=== PATIENT | female | born 1950 | race Caucasian/White ===

== ENCOUNTER 2019-11-24 13:39 | Emergency (ER) | payer OTHER, SELFPAY ==
[2019-11-24 14:09] VITALS: BP 118/85; PULSE 66; RESP 20; TEMP 37.3; O2SAT 97
--- NOTE | 2019-11-24 15:10 | ED.URI ---
HPI - URI/Sore Throat General Chief Complaint: Upper Respiratory Infection Stated Complaint: cough/body aches Time Seen by Provider: 11/24/19 15:10 Source: patient Mode of arrival: ambulatory Limitations: no limitations History of Present Illness HPI Narrative: A 69 y/o female, who is a smoker/occasional drinker hospital worker, presents to with c/o of a cough since (3 days ago). She reports a low grade fever and a sore throat from coughing, but denies an earache, CP , calf pain/ edema, SOB, N/V/D/ . Pt states that she got her influenza immunization this season. Pt is not on any wheezing medications. Onset (ago): day(s) (3) Related Data Home Medications Medication Instructions Recorded Confirmed aspirin [Aspirin Low Dose] 81 mg PO DAILY 11/24/19 11/24/19 sertraline 25 mg PO DAILY 11/24/19 11/24/19 Allergies Allergy/AdvReac Type Severity Reaction Status Date / Time No Known Allergies Allergy Verified 11/24/19 14:07 Review of Systems Review of Systems: Narrative: General/Constitutional: Reports: low grade fever; Denies: weight loss Eyes: Denies: Redness,discharge Ears/Nose/Throat: Reports: sore throat; Denies: Epistaxis,ear discharge, earache Respiratory: Reports: a cough; Denies: Hemoptysis Cardiovascular: Denies: edema Gastrointestinal: Denies: Vomiting, Bleeding-rectal Skin: Denies: Lumps, eruption Neurologic: Denies: Focal Weakness,Sz Hematologic: Denies: Petechiae/Purpura Psychiatric: Denies: Suicidal ideation All systems reviewed & are unremarkable except as noted in HPI and below PMFSH Past Medical History Medical History Anxiety Bronchitis Cerebral aneurysm Hepatitis C HTN (hypertension) Mass on back Seasonal allergies Wears dentures upper partial Wears glasses Surgical History Surgical History H/O brain surgery S/P cerebral aneurysm coil H/O breast biopsy left, benign H/O colonoscopy H/O repair of right rotator cuff H/O: hysterectomy History of tonsillectomy Family History Family History Mother Hypertension Cerebrovascular accident Family history of lupus erythematosus Sibling Hypertension Father Family history of diabetes mellitus in first degree relative Patient's father is Diabetes mellitus Social History Social History (Updated 11/24/19 @ 15:27 by Sally Calabrese) Smoking status: Smoker, status unknown Second hand tobacco smoke exposure: Yes Alcohol intake: current Comments PCP: Dr. Cloud At time of signature, agree with nursing past medical, surgical, social and family history. There is no relevant family history pertinent to the presenting complaint Exam Narrative: Exam Narrative: General Appearance: Well appearing, Well nourished, No distress EYE: PERRLA, EOMI, Conjunctiva clear Ears: External ear normal, Auditory canal normal, TM normal Nose: Normal nose, Rhinorrhea, Mucousal erythema Mouth/Throat: Normal appearing, Normal lips, MM moist, Uvula midline, Pharyngeal erythema Respiratory: Airway patent, No respiratory distress, Breath sounds equal, slight wheeze Cardiovascular: RRR, No JVD Skin: Warm, Dry, Normal color Neurological: A&O x3, Speech clear, CN II-X intact Psychiatric: Normal mood, Normal affect Course Vital Signs Vital signs: Vital Signs Temperature 99.1 F 11/24/19 14:09 Pulse Rate 66 11/24/19 14:09 Respiratory Rate 20 11/24/19 14:09 Blood Pressure 118/85 11/24/19 14:09 Pulse Oximetry 97 11/24/19 14:09 Temperature 99.1 F 11/24/19 14:09 Pulse Rate 66 11/24/19 14:09 Respiratory Rate 20 11/24/19 14:09 Blood Pressure 118/85 11/24/19 14:09 Pulse Oximetry 97 11/24/19 14:09 MDM - URI/Sore Throat Lab Data Labs: Influenza A Screen Positive Reference Range: Negative Influenza B Sc
== END 2019-11-24 15:26 | disposition home or self-care (01) ==
PROVIDERS: Emergency Provider Emergency Medicine; PCP Internal Medicine
DX: J11.1 Influenza due to unidentified influenza virus with other respiratory manifestations (principal); F17.210 Nicotine dependence, cigarettes, uncomplicated
CPT/HCPCS: 87804; 99213; G0463

== ENCOUNTER 2019-12-20 11:04 | Outpatient (CLI) | payer OTHER, SELFPAY ==
[2019-12-20 11:33] LABS: Hematocrit 45.1 % (37.0-47.0); Hemoglobin 14.7 g/dL (12.0-15.0); Mean Corpuscular HGB Conc 32.6 g/dl (32-36); Mean Corpuscular Hemoglobin 30.1 pg (26-34); Mean Corpuscular Volume 92.2 fl (80-100); Mean Platelet Volume 10.3 fl (7.4-10.4); Platelet Count Result 259 k/mm3 (150-375); Red Blood Count 4.89 M/mm3 (4.2-5.4); Red Cell Distribution Width 13.9 % (11.5-14.5); White Blood Count 6.4 K/mm3 (4.5-10.0)
[2019-12-20 11:48] LABS: Potassium 4.7 mmol/L (3.4-5.0)
[2019-12-20 12:00] LABS: LDL Cholesterol Direct 80 mg/dL
[2019-12-20 12:08] LABS: Alanine Aminotransferase 24 U/L (4-35); Albumin Level 4.4 g/dL (3.5-5.1); Alkaline Phosphatase 91 U/L (38-126); Aspartate Amino Transferase 32 U/L (14-36); Bilirubin,Total 0.5 mg/dL (0.2-1.3); Blood Urea Nitrogen 15 mg/dL (7-17); Calcium 9.3 mg/dL (8.4-10.2); Carbon Dioxide 28 mmol/L (22-30); Chloride 107 mmol/L (98-107); Cholesterol 168 mg/dL (0-200); Estimated Glomerular Filt Rate 55; Glucose 95 mg/dL (65-105); HDL Direct 60 mg/dL; Sodium 143 mmol/L (137-145); Triglycerides 94 mg/dL (<150)
[2019-12-20 12:44] LABS: Hepatitis C Virus Antibody Reactive (Negative)
[2019-12-20 12:52] LABS: Folic Acid > 20.0 ng/mL (2.76->20); Vitamin B12 > 1000.0 pg/mL (239-931)
== END 2019-12-20 11:05 | disposition home or self-care (01) ==
LOC: ANHLAB 11:07
PROVIDERS: PCP Internal Medicine; Visit Provider Internal Medicine
DX: Z00.00 Encounter for general adult medical examination without abnormal findings (principal); B18.2 Chronic viral hepatitis C; R53.83 Other fatigue
CPT/HCPCS: 36415; 80053; 80061; 82607; 82746; 84443; 85027; 86803; 87522

== ENCOUNTER 2020-06-12 10:35 | Outpatient (CLI) | payer OTHER, SELFPAY ==
--- NOTE | ~2020-06-12 | MM_ITS ---
EXAMINATION: MM screening [facility] BI w hilario HISTORY: Screening mammogram TECHNIQUE: Craniocaudal and mediolateral oblique 3-D tomosynthesis images were obtained and synthetic 2-D images were generated. CAD analysis was submitted and interpreted. COMPARISON: 02/12/2019, 11/08/2016, 03/07/2014, 02/27/2014 BREAST PARENCHYMAL COMPOSITION: There are scattered areas of fibroglandular density. FINDINGS: There is no evidence of suspicious mass, calcification, or architectural distortion to sugg est malignancy in either breast. There has been no suspicious interval change. IMPRESSION: 1. No mammographic evidence of malignancy. 2. Recommend routine screening mammography in one year. BI-RADS Category 1: Negative Reviewed, dictated and finalized at location A.
== END 2020-06-12 10:36 | disposition home or self-care (01) ==
LOC: ANHIMG 10:37
PROVIDERS: PCP Internal Medicine; Visit Provider Internal Medicine
DX: Z12.31 Encounter for screening mammogram for malignant neoplasm of breast (principal)
CPT/HCPCS: 77063; 77067

== ENCOUNTER 2020-10-02 08:29 | Outpatient (CLI) | payer OTHER, SELFPAY ==
[2020-10-02 08:43] LABS: Basophils Absolute Auto 0.1 K/mm3 (0.0-0.1); Basophils Percent Auto 1.1 % (0.2-1.2); Eosinophils Absolute Auto 0.2 K/mm3 (0-0.3); Eosinophils Percent Auto 2.7 % (0-4.4); Hematocrit 42.3 % (37.0-47.0); Hemoglobin 13.9 g/dL (12.0-15.0); Immature Granulocyte Absolute 0.02 K/mm3 (0.00-0.031); Immature Granulocyte Percent A 0.4 % (0-0.5); Lymphocytes Absolute Auto 1.46 K/mm3 (0.9-3.2); Lymphocytes Percent Auto 26.6 % (18.3-44.2); Mean Corpuscular HGB Conc 32.9 g/dl (32-36); Mean Corpuscular Volume 94.2 fl (80-100); Mean Platelet Volume 10.3 fl (7.4-10.4); Monocytes Absolute Auto 0.4 K/mm3 (0.1-0.6); Monocytes Percent Auto 7.5 % (2.6-8.5); Neutrophils Absolute Auto 3.4 K/mm3 (1.3-6.7); Neutrophils Percent Auto 61.7 % (45.5-73.1); Platelet Count Result 243 k/mm3 (150-375); Red Blood Count 4.49 M/mm3 (4.2-5.4); Red Cell Distribution Width 13.4 % (11.5-14.5); White Blood Count 5.5 K/mm3 (4.5-10.0)
[2020-10-02 08:58] LABS: Alanine Aminotransferase 22 U/L (4-35); Albumin Level 4.1 g/dL (3.5-5.1); Alkaline Phosphatase 69 U/L (38-126); Anion Gap 0 mmol/L (8-16); Aspartate Amino Transferase 30 U/L (14-36); Bilirubin,Total 0.5 mg/dL (0.2-1.3); Blood Urea Nitrogen 23 mg/dL (7-17); Calcium 9.4 mg/dL (8.4-10.2); Carbon Dioxide 37 mmol/L (22-30); Chloride 107 mmol/L (98-107); Cholesterol 161 mg/dL (0-200); Estimated Glomerular Filt Rate 55; Glucose 96 mg/dL (65-105); HDL Direct 57 mg/dL; Magnesium 2.1 mg/dL (1.6-2.3); Potassium 4.4 mmol/L (3.4-5.0); Sodium 144 mmol/L (137-145); Triglycerides 77 mg/dL (<150)
[2020-10-02 09:09] LABS: LDL Cholesterol Direct 78 mg/dL
[2020-10-02 10:13] LABS: Folic Acid > 20.0 ng/mL (2.76->20)
== END 2020-10-02 08:30 | disposition home or self-care (01) ==
PROVIDERS: PCP Internal Medicine; Visit Provider Internal Medicine
DX: Z00.00 Encounter for general adult medical examination without abnormal findings (principal); R53.83 Other fatigue; I10 Essential (primary) hypertension
CPT/HCPCS: 36415; 80053; 80061; 82607; 82746; 83735; 84443; 85025

== ENCOUNTER 2021-06-16 14:51 | Outpatient (CLI) | payer MEDICARE, SELFPAY ==
--- NOTE | ~2021-06-16 | MM_ITS ---
EXAMINATION: MM screening [facility] BI w hilario HISTORY: Screening TECHNIQUE: Craniocaudal and mediolateral oblique 3-D tomosynthesis images were obtained and synthetic 2-D images were generated. CAD analysis was submitted and interpreted. COMPARISON: Comparison to multiple prior studies sequentially, with oldest reviewed study dated 02/27. BREAST PARENCHYMAL COMPOSITION: There are scattered areas of fibroglandular density. FINDINGS: There is no evidence of suspicious mass, calcification, or architectural distortion to sugg est malignancy in either breast. There has been no suspicious interval change. IMPRESSION: 1. No mammographic evidence of malignancy. 2. Recommend routine screening mammography in one year. BI-RADS Category 1: Negative Reviewed, dictated and finalized at location A.
== END 2021-06-16 14:52 | disposition home or self-care (01) ==
LOC: ANHIMG 14:54
PROVIDERS: PCP Internal Medicine; Visit Provider Internal Medicine
DX: Z12.31 Encounter for screening mammogram for malignant neoplasm of breast (principal)
CPT/HCPCS: 77063; 77067

== ENCOUNTER 2021-11-15 11:19 | Outpatient (CLI) | payer MEDICARE, SELFPAY ==
[2021-11-15 11:46] LABS: Basophils Absolute Auto 0.1 K/mm3 (0.0-0.1); Basophils Percent Auto 1.7 % (0.2-1.2); Eosinophils Absolute Auto 0.1 K/mm3 (0-0.3); Hematocrit 43.5 % (37.0-47.0); Hemoglobin 14.5 g/dL (12.0-15.0); Immature Granulocyte Absolute 0.01 K/mm3 (0.00-0.031); Immature Granulocyte Percent A 0.2 % (0-0.5); Lymphocytes Percent Auto 28.8 % (18.3-44.2); Mean Corpuscular HGB Conc 33.3 g/dl (32-36); Mean Corpuscular Hemoglobin 30.9 pg (26-34); Mean Corpuscular Volume 92.6 fl (80-100); Mean Platelet Volume 10.3 fl (7.4-10.4); Monocytes Absolute Auto 0.4 K/mm3 (0.1-0.6); Monocytes Percent Auto 6.7 % (2.6-8.5); Neutrophils Percent Auto 60.6 % (45.5-73.1); Platelet Count Result 243 k/mm3 (150-375); Red Cell Distribution Width 13.4 % (11.5-14.5); White Blood Count 6.6 K/mm3 (4.5-10.0)
[2021-11-15 11:58] LABS: Alanine Aminotransferase 25 U/L (4-35); Albumin Level 4.5 g/dL (3.5-5.1); Alkaline Phosphatase 99 U/L (38-126); Anion Gap 4 mmol/L (8-16); Aspartate Amino Transferase 30 U/L (14-36); Bilirubin,Total 0.4 mg/dL (0.2-1.3); Blood Urea Nitrogen 13 mg/dL (7-17); Calcium 9.5 mg/dL (8.4-10.2); Carbon Dioxide 29 mmol/L (22-30); Chloride 109 mmol/L (98-107); Cholesterol 183 mg/dL (0-200); Estimated Glomerular Filt Rate 55; Glucose 103 mg/dL (65-110); HDL Direct 71 mg/dL; Potassium 4.2 mmol/L (3.4-5.0); Sodium 142 mmol/L (137-145); Triglycerides 102 mg/dL (<150)
[2021-11-15 12:09] LABS: LDL Cholesterol Direct 79 mg/dL
[2021-11-15 13:06] LABS: Folic Acid > 20.0 ng/mL (2.76->20)
== END 2021-11-15 11:20 | disposition home or self-care (01) ==
PROVIDERS: PCP Internal Medicine; Visit Provider Internal Medicine
DX: R53.83 Other fatigue (principal); I10 Essential (primary) hypertension; R74.8 Abnormal levels of other serum enzymes
CPT/HCPCS: 36415; 80053; 80061; 82607; 82746; 84443; 85025

== ENCOUNTER 2022-04-05 14:14 | Outpatient (CLI) | payer MEDICARE, SELFPAY ==
--- NOTE | ~2022-04-05 | XR_ITS ---
EXAM: XR ankle LT 2V, XR tibia fibula LT 2V DATE: 04/05/2022 14:53 HISTORY: M79.606 - Pain in leg, unspecified . COMPARISON: None available. FINDINGS: Decreased mineralization. No fracture or dislocation. No lytic or blastic lesion. Plantar and Achilles enthesopathy. Mild degenerative tibiotalar change. No erosion or periosteal change. Soft tissues within normal limits. Small left ankle joint effusion. IMPRESSION: No acute osseous finding in the left tibia/fibula or left ankle. Reviewed, dictated and finalized at location K. IMPRESSION: No acute osseous finding in the left tibia/fibula or left ankle.
--- NOTE | ~2022-04-05 | XR_ITS ---
EXAMINATION: XR knee LT 3V DATE: 04/05/2022 14:53 INDICATION: Left knee pain TECHNIQUE: Three views of the left knee were obtained. COMPARISON: None. FINDINGS: Alignment is normal. No fracture or osteochondral lesion. There is mild tricompartmental os teoarthritis characterized by tiny marginal osteophytes. No joint effusion/synovitis. Soft tissues a re unremarkable. IMPRESSION: 1. No acute osseous abnormality. Reviewed, dictated and finalized at location A.
== END 2022-04-05 14:15 | disposition home or self-care (01) ==
PROVIDERS: PCP Internal Medicine; Visit Provider Internal Medicine
DX: M79.606 Pain in leg, unspecified (principal)
CPT/HCPCS: 73562; 73590; 73600

== ENCOUNTER 2022-06-15 07:15 | Outpatient (RCR) | payer MEDICARE, SELFPAY ==
[2022-04-20 13:00] VITALS: BMI 28.3
== END 2022-07-04 08:28 | disposition home or self-care (01) ==
LOC: ANHWOC 07:15
PROVIDERS: PCP Internal Medicine; Visit Provider Internal Medicine
DX: S80.812D Abrasion, left lower leg, subsequent encounter (principal)
CPT/HCPCS: 87070; 87077; 87186; 87205; 99211; 99212; 99213; A9270; G0463

== ENCOUNTER → 2022-09-07 08:28 | Outpatient (CLI) | payer MEDICARE, SELFPAY ==
--- NOTE | ~2022-09-07 | MM_ITS ---
EXAMINATION: MM screening [facility] BI w hilario HISTORY: Screening mammogram TECHNIQUE: Craniocaudal and mediolateral oblique 3-D tomosynthesis images were obtained and synthetic 2-D images were generated. CAD analysis was submitted and interpreted. COMPARISON: 06/16/2021, 06/12/2020, 02/12/2019 bilateral screening mammogram examinations BREAST PARENCHYMAL COMPOSITION: There are scattered areas of fibroglandular density. FINDINGS: There is no evidence of suspicious mass, calcification, or architectural distortion to sugg est malignancy in either breast. There has been no suspicious interval change. IMPRESSION: 1. No mammographic evidence of malignancy. 2. Recommend routine screening mammography in one year. BI-RADS Category 1: Negative Reviewed, dictated and finalized at location A. RIDER
== END ==
PROVIDERS: PCP Internal Medicine; Visit Provider Internal Medicine
DX: Z12.31 Encounter for screening mammogram for malignant neoplasm of breast (principal)
CPT/HCPCS: 77063; 77067

== ENCOUNTER 2022-09-13 14:40 | Outpatient (CLI) | payer MEDICARE, SELFPAY ==
--- NOTE | ~2022-09-13 | DEXA_ITS ---
Bone Density Report Name: FRAN VAZQUEZ Age: 71 Sex: Female Ethnicity: White Date of : 1950 Indication: postmenopausal; screening for osteoporosis; hysterectomy; Referring Provider: TYRONE GARCIA Study: Bone densitometry was performed. Exam Date: September 13, 2022 Accession number: [id number] Bone Density: Region BMD T-score Z-score Classification AP Spine(L1-L4) 0.744 -2.8 -0.6 Osteoporosis Femoral Neck (Left) 0.569 -2.5 -0.7 Osteoporosis Total Hip (Left) 0.649 -2.4 -0.9 Osteopenia Femoral Neck (Right) 0.561 -2.6 -0.8 Osteoporosis Total Hip (Right) 0.636 -2.5 -1.0 Osteoporosis Total Hip Mean 0.643 -2.5 -1.0 Osteopenia World Health Organization criteria for BMD impression classify patients as: Normal (T-score at or above -1.0), Osteopenia (T-score between -1.0 and -2.5), or Osteoporosis (T-score at or below -2.5). 10-year Fracture Risk: FRAX not reported because: Some T-score for Spine Total or Hip Total or Femoral Neck at or below -2.5 Clinical Information Provided by Patient: Has used the following medications: Vitamin D, Calcium Has the following medical conditions: Hysterectomy Patient maximum height was 64 Menopause Age: 47 No regular weight bearing exercise Drinks caffeinated beverages Onset of menses at age 14 Number of children 2 Impression: The patient has osteoporosis, based on the Total Spine T-score. Discussion: INCREASED RISK OF FRACTURE. BONE DENSITY IS UNDESIRABLY LOW AT ONE OR MORE SKELETAL SITES, CONSISTENT WITH POSTMENOPAUSAL OSTEOPOROSIS. This patient's lowest T-score meets the World Health Organization's (WHO) criteria for osteoporosis at one or more sites (T-score -2.5 or below). In untreated patients, the risk of osteoporotic fracture increases approximately two-fold for each 1.0 SD decrease in T-score. Low bone density is not the only risk factor for fracture; also consider factors such as patient's age, frailty or poor health, risk of falling, risk of injury, previous osteoporotic fracture, family history of osteoporosis, cigarette smoking, low body weight, etc. Not everyone with low bone mineral density has osteoporosis; osteomalacia and other metabolic bone disorders should also be considered. Patients who have osteoporosis should be evaluated for specific diseases and conditions (secondary causes) that may cause or contribute to bone loss. The [place] [employer] Clinical Endocrinologists (AACE) and National Osteoporosis Foundation (NOF) recommend pharmacologic intervention for all postmenopausal women whose T-score is in this range. The patient should follow a healthful lifestyle (good nutrition with adequate calcium and vitamin D, and appropriate weight-bearing exercise). Follow-Up: Consider a repeat BMD and Vertebral Fracture Assessment (VFA) e
== END 2022-09-13 14:41 | disposition home or self-care (01) ==
PROVIDERS: PCP Internal Medicine; Visit Provider Internal Medicine
DX: Z78.0 Asymptomatic menopausal state (principal); M85.89 Other specified disorders of bone density and structure, multiple sites; M81.0 Age-related osteoporosis without current pathological fracture
CPT/HCPCS: 77080

== ENCOUNTER 2022-09-19 08:49 | Outpatient (CLI) | payer MEDICARE, SELFPAY ==
[2022-09-19 09:10] LABS: Basophils Absolute Auto 0.1 K/mm3 (0.0-0.1); Basophils Percent Auto 1.4 % (0.2-1.2); Eosinophils Absolute Auto 0.2 K/mm3 (0-0.3); Eosinophils Percent Auto 4.3 % (0-4.4); Hematocrit 41.2 % (37.0-47.0); Hemoglobin 13.5 g/dL (12.0-15.0); Immature Granulocyte Absolute 0.02 K/mm3 (0.00-0.031); Immature Granulocyte Percent A 0.4 % (0-0.5); Lymphocytes Absolute Auto 1.26 K/mm3 (0.9-3.2); Lymphocytes Percent Auto 24.9 % (18.3-44.2); Mean Corpuscular HGB Conc 32.8 g/dl (32-36); Mean Corpuscular Hemoglobin 30.4 pg (26-34); Mean Corpuscular Volume 92.8 fl (80-100); Mean Platelet Volume 9.9 fl (7.4-10.4); Monocytes Absolute Auto 0.4 K/mm3 (0.1-0.6); Monocytes Percent Auto 8.1 % (2.6-8.5); Neutrophils Absolute Auto 3.1 K/mm3 (1.3-6.7); Neutrophils Percent Auto 60.9 % (45.5-73.1); Platelet Count Result 220 k/mm3 (150-375); Red Blood Count 4.44 M/mm3 (4.2-5.4); Red Cell Distribution Width 13.2 % (11.5-14.5); White Blood Count 5.1 K/mm3 (4.5-10.0)
[2022-09-19 09:51] LABS: Alanine Aminotransferase 25 U/L (6-35); Albumin Level 4.1 g/dL (3.5-5.1); Alkaline Phosphatase 91 U/L (38-126); Anion Gap 5 mmol/L (8-16); Aspartate Amino Transferase 30 U/L (14-36); Bilirubin,Total 0.5 mg/dL (0.2-1.3); Blood Urea Nitrogen 14 mg/dL (7-17); Calcium 8.8 mg/dL (8.4-10.2); Carbon Dioxide 30 mmol/L (22-30); Chloride 109 mmol/L (98-107); Cholesterol 184 mg/dL (0-200); Estimated Glomerular Filt Rate 49; Glucose 97 mg/dL (65-110); HDL Direct 69 mg/dL; Potassium 4.8 mmol/L (3.4-5.0); Sodium 144 mmol/L (137-145); Triglycerides 94 mg/dL (<150)
[2022-09-19 10:10] LABS: LDL Cholesterol Direct 72 mg/dL
[2022-09-19 10:55] LABS: Folic Acid > 20.0 ng/mL (2.76->20)
== END 2022-09-19 08:50 | disposition home or self-care (01) ==
LOC: ANHLAB 08:54
PROVIDERS: PCP Internal Medicine; Visit Provider Internal Medicine
DX: R53.83 Other fatigue (principal); I10 Essential (primary) hypertension; R74.8 Abnormal levels of other serum enzymes
CPT/HCPCS: 36415; 80053; 80061; 82607; 82746; 84443; 85025

== ENCOUNTER 2022-12-12 08:23 | Outpatient (CLI) | payer MEDICARE, SELFPAY ==
--- NOTE | 2022-12-12 08:34 | EST_ITS ---
Patient Info Name: Nata Fuentes Age: 72 years : 1950 Gender: Female Ht: 63 in Wt: 170 lbs BSA: 1.88 m2 HR: 63 bpm BP: 126 / 77 mmHg Heart Rhythm: Sinus Rhythm Technical Quality: Fair Exam Date: 12/12/2022 8:47 AM Exam Location: [facility] Patient Status: Outpatient Admit Date: 12/12/2022 Staff Ordering Physician: Lawson Cloud DO [employer]: Cinthia Gunter RDCS Attending Provider: Referring Physician: Ai CABRAL; Exam Type: CA stress echo Study Info Indications R00.2 - Palpitations Treadmill exercise stress echocardiogram is performed. Summary 1. 1. Negative Emile exercise stress test for ischemic ST changes by ECG criteria. 2. 2. Mildly reduced functional capacity, achieving 7 METs of workload. 3. 3. Hypertensive response to exercise. 4. 4. Appropriate HR response to exercise. 5. 5. Appropriate HR recovery at 1 minute post exercise. 6. 6. Negative stress echocardiogram for ischemia by wall motion analysis. 7. 7. Patient informed of the above results. Stress Echo Findings Left Ventricle Appropriate increase in LV endocardial thickening with systole. Appropriate augmentation of contractility with systole. No wall motion abnormality. Left Ventricle Normal LV systolic function, no wall motion abnormality. Protocol: Emile Stress ECG Details Stage: REST Duration (min): 0 min : 58 sec Speed (mph): 0.0 Grade (%): 0 HR (bpm): 66 SBP (mmHg): 126 DBP (mmHg): 77 METS: --- Stage: REST Duration (min): 9 min : 37 sec Speed (mph): 0.0 Grade (%): 0 HR (bpm): 67 SBP (mmHg): 126 DBP (mmHg): 77 METS: --- Stage: STAGE 1 Duration (min): 1 min : 0 sec Speed (mph): 1.7 Grade (%): 10 HR (bpm): 95 SBP (mmHg): 126 DBP (mmHg): 77 METS: --- Stage: STAGE 1 Duration (min): 2 min : 0 sec Speed (mph): 1.7 Grade (%): 10 HR (bpm): 121 SBP (mmHg): 126 DBP (mmHg): 77 METS: --- Stage: STAGE 1 Duration (min): 3 min : 0 sec Speed (mph): 1.7 Grade (%): 10 HR (bpm): 126 SBP (mmHg): 126 DBP (mmHg): 77 METS: --- Stage: STAGE 2 Duration (min): 1 min : 0 sec Speed (mph): 2.5 Grade (%): 12 HR (bpm): 139 SBP (mmHg): 126 DBP (mmHg): 77 METS: --- Stage: STAGE 2 Duration (min): 1 min : 54 sec Speed (mph): 0.0 Grade (%): 0 HR (bpm): 143 SBP (mmHg): 196 DBP (mmHg): 120 METS: --- Stage: RECOVERY Duration (min): 0 min : 5 sec Speed (mph): 0.0 Grade (%): 0 HR (bpm): 142 SBP (mmHg): 196 DBP (mmHg): 120 METS: --- Stage: RECOVERY Duration (min): 1 min : 5 sec Speed (mph): 0.0 Grade (%): 0 HR (bpm): 119 SBP (mmHg): 196 DBP (mmHg): 120 METS: --- Stage: RECOVERY Duration (min): 2 min : 5 sec Speed (mph): 0.0 Grade (%): 0 HR (bpm): 102 SBP (mmHg): 201 DBP (mmHg): 120 METS: --- Stage: RECOVERY Duration
--- NOTE | 2022-12-14 14:33 | WPDHOLTEREM ---
Holter/Event Monitor Holter/Event Monitor Date of procedure: 12/12/22 Holter/Event Procedure: 48 Hr Holter Monitor Indications: Palpitations Conclusion: 1. 48 hour holter monitor on 12/12/22. 2. Underlying rhythm is sinus rhythm. HR range 40-122 bpm; average HR 72 bpm. 3. There are 49 premature supraventricular complexes and 9 supraventricular couplets, and 3 supraventricular trigeminy. No supraventricular tachycardia. 4. There are 4 premature ventricular complexes. No ventricular tachycardia. 5. No sinoatrial or atrioventricular blocks. No significant pauses greater than 2 seconds. 6. No symptoms available for correlation.
== END 2022-12-12 08:24 | disposition home or self-care (01) ==
PROVIDERS: PCP Internal Medicine; Visit Provider Internal Medicine
DX: R07.89 Other chest pain (principal); R00.2 Palpitations
CPT/HCPCS: 93225; 93226; 93351

== ENCOUNTER 2023-02-08 15:36 | Outpatient (CLI) | payer MEDICARE, SELFPAY ==
--- NOTE | ~2023-02-08 | CT_ITS ---
Non-contrast Head CT History: Aneurysm COMPARISON: 08/17/2019 Technique: Axial non-contrast imaging of the brain was performed. Dose reduction technique was used on this scan by utilizing automated exposure control and iterative reconstruction technique. The dose -length product (DLP) was 605.33 mGy-cm. Findings: There is no evidence of intracranial hemorrhage, mass lesion, or acute infarct. Stable ane urysm coils at the region of the anterior communicating artery. Brain parenchyma appears normal, taki ng into account streak artifact. The ventricles and subarachnoid spaces are normal in size. The cheli varium appears normal. The visualized paranasal sinuses and mastoid air cells are clear. Impression: No acute abnormality seen. Stable aneurysm coils at the region of the anterior communicating artery. Reviewed, dictated and finalized at location . Impression: No acute abnormality seen. Stable aneurysm coils at the region of the anterior communicating artery.
== END 2023-02-08 15:37 | disposition home or self-care (01) ==
PROVIDERS: PCP Internal Medicine; Visit Provider Internal Medicine
DX: I67.1 Cerebral aneurysm, nonruptured (principal); Z86.79 Personal history of other diseases of the circulatory system
CPT/HCPCS: 70450

== ENCOUNTER 2023-02-15 09:06 | Outpatient (CLI) | payer MEDICARE, SELFPAY ==
--- NOTE | 2023-02-15 12:32 | WPDPFTINT ---
PFT Procedure Performed PFT Procedure Performed Spirometry with Pre/Post Bronchodilator Plethysmography (Lung Vol) Diffusing Cap (DLCO) Flow Vol Loop PFT Interpretation This is a pulmonary function test with pre and post-bronchodilator spirometry, plethysmography and diffusing capacity. The test was performed and results interpreted in accordance with the 2019 and 2005 ATS/ERS Task Force guidelines respectively using the Global Lung Function Initiative-2012 reference equations. Patient demonstrated good effort and cooperation. Reproducibility criteria were met. The quality of the pre bronchodilator spirometry maneuver was Grade A and post bronchodilator spirometry maneuver was Grade A. Findings: Spirometry: There is decreased maximal expiratory airflow at all lung volumes with concave expiratory flow tracing. The contour the inspiratory flow tracing is normal. The pre bronchodilator FVC is 2.62 L, 95% predicted. The pre bronchodilator FEV1 is 1.52 L, 71% predicted. The pre bronchodilator FEV1: FVC ratio is 58%. The post bronchodilator FVC is 2.75 L, representing a 5% increase. The post bronchodilator FEV1 is 1.74 L, representing a 14% increase. The post bronchodilator FEV1: FVC ratio 63%. Plethysmography: The total lung capacity is 6.75 L, 138% predicted. The functional residual capacity is 4.65 L, 166% predicted. The residual volume is 4.12 L, 193% predicted. Diffusing capacity: The diffusing capacity unadjusted for hemoglobin and carboxyhemoglobin is 14.4, 72% predicted. The diffusing capacity adjusted for alveolar volume is 3.74, 86% predicted. Impression: There is a mild obstructive abnormality with significant improvement after inhaling a single dose of albuterol. The increase in residual volume is consistent with air trapping from an obstructive abnormality. Hyperinflation is present as demonstrated by the increase in functional residual capacity and total lung capacity and is consistent with an obstructive abnormality. The diffusing capacity is normal. There are no prior studies for comparison
== END 2023-02-15 09:07 | disposition home or self-care (01) ==
PROVIDERS: PCP Internal Medicine; Visit Provider Internal Medicine
DX: R06.09 Other forms of dyspnea (principal); R94.2 Abnormal results of pulmonary function studies
CPT/HCPCS: 94060; 94726; 94729

== ENCOUNTER 2023-04-05 01:22 | Day surgery (SDC) | payer MEDICARE, SELFPAY ==
[2023-03-28 10:31] VITALS: BMI 30.2
--- NOTE | 2023-04-04 22:30 | PM.HPGS ---
History of Present Illness History of Present Illness Consent: Risks, benefits, and alternatives have been discussed and questions answered. Patient agrees to proceed with procedure. Chief complaint: neoplasm screening Narrative: Nata Fuentes is a 72 year old female Referred for colon cancer screening. Nine years ago she had a small polyp removed. Review of Systems Review of Systems: All systems reviewed & are unremarkable except as noted in HPI and below PMFSH Past Medical History Medical History Anxiety Bronchitis Cerebral aneurysm Hepatitis C HTN (hypertension) Mass on back Seasonal allergies Wears dentures upper partial Wears glasses Surgical History Surgical History H/O brain surgery S/P cerebral aneurysm coil H/O breast biopsy left, benign H/O colonoscopy H/O repair of right rotator cuff H/O: hysterectomy History of tonsillectomy Family History Family History Mother Hypertension Cerebrovascular accident Family history of lupus erythematosus Sibling Hypertension Father Family history of diabetes mellitus in first degree relative Patient's father is Diabetes mellitus Social History Social History Smoking packs per day: 0.5 Smoking cigarettes per day: 10.0 Years smoked: 40 Smoking pack-years: 20.00 Smoking status: Former smoker Tobacco type: cigarettes Second hand tobacco smoke exposure: Yes Alcohol intake: current Drinks per week: 2 Alcohol use details: GLASSES WINE Substance use: never Substance use type: does not use Living arrangements: with family Spiritual care concerns: No Meds Home Medications and Allergies Home Medications Medication Instructions Recorded Confirmed Type aspirin 81 mg tablet,delayed 81 mg PO DAILY 11/24/19 04/05/23 History release (Shalonda Low Dose Aspirin) multivitamin (Daily Multi-Vitamin 1 tablet PO DAILY 06/16/21 04/05/23 History tablet) bupropion HCl 150 mg tablet,12 hr 150 mg PO BID #180 tabs 09/28/22 04/05/23 Rx sustained-release (Wellbutrin SR) venlafaxine 75 mg capsule,extended 75 mg PO DAILY #90 caps 09/28/22 04/05/23 Rx release 24 hr lisinopril 10 mg tablet 10 mg PO DAILY #90 tabs 02/07/23 04/05/23 Rx fluticasone propionate 44 1 inh inhalation BID #10.6 grams 02/22/23 04/05/23 Rx mcg/actuation HFA aerosol inhaler (Flovent) benzonatate 200 mg capsule 200 mg PO BID PRN Cough 03/28/23 04/05/23 History Allergies Allergy/AdvReac Type Severity Reaction Status Date / Time venom-wasp Allergy Severe Swelling Verified 04/05/23 07:46 Exam Const: General: alert Orientation/consciousness: patient oriented x3 Resp: Auscultation: clear to auscultation bilaterally Cardio: Rhythm: regular rhythm GI: GI Palp: Yes Soft to palpation and No Tenderness to palpation present (GI) Neuro: General: patient oriented x3 Assessment and Plan Assessment and plan (1) Colon cancer screening: Code(s): Z12.11 - Encounter for screening for malignant neoplasm of colon Status: Acute Assessment and Plan: Colonoscopy with possible biopsy or polypectomy or cautery or injection of substances.
[2023-04-05 07:49] VITALS: BP 145/100; PULSE 68; RESP 16; TEMP 36.2; O2SAT 98; BMI 29.5
[2023-04-05] MEDS: LACTATED RINGERS 1,000 ML 150 ML IV CONT (08:00)
--- NOTE | 2023-04-05 09:00 | WPDANESEPPF ---
Anes - Initial Pre Proc Eval Procedure: Operation Date: 04/05/23 09:00 Proposed Procedures p Screening Colonoscopy - John [facility] MD Date/Time: 04/05/23 09:00 Surgeon: John Hopkins MD Pre Op Diagnosis: neoplasm screening Patient Data Age: 72 Gender: F Height: 1.6 m Weight: 75.5 kg Last Vital Signs Temp 97.1 F L 04/05/23 07:49 Pulse 68 04/05/23 07:49 Resp 16 04/05/23 07:49 BP 145/100 H 04/05/23 07:49 Pulse Ox 98 04/05/23 07:49 O2 Del Method Room Air 04/05/23 07:49 Allergies Allergy/AdvReac Type Severity Reaction Status Date / Time venom-wasp Allergy Severe Swelling Verified 04/05/23 07:46 Home Medications Medication Instructions Recorded Confirmed Type aspirin 81 mg tablet,delayed 81 mg PO DAILY 11/24/19 04/05/23 History release (Shalonda Low Dose Aspirin) multivitamin (Daily Multi-Vitamin 1 tablet PO DAILY 06/16/21 04/05/23 History tablet) bupropion HCl 150 mg tablet,12 hr 150 mg PO BID #180 tabs 09/28/22 04/05/23 Rx sustained-release (Wellbutrin SR) venlafaxine 75 mg capsule,extended 75 mg PO DAILY #90 caps 09/28/22 04/05/23 Rx release 24 hr lisinopril 10 mg tablet 10 mg PO DAILY #90 tabs 02/07/23 04/05/23 Rx fluticasone propionate 44 1 inh inhalation BID #10.6 grams 02/22/23 04/05/23 Rx mcg/actuation HFA aerosol inhaler (Flovent) benzonatate 200 mg capsule 200 mg PO BID PRN Cough 03/28/23 04/05/23 History Patient hx anesthesia problems: none Family hx anesthesia problems: none Results Review: All pre-operative results and documents have been reviewed as part of the pre-operative evaluation. [facility] Past Medical History Medical History Anxiety Bronchitis Cerebral aneurysm Hepatitis C HTN (hypertension) Mass on back Seasonal allergies Wears dentures upper partial Wears glasses Surgical History Surgical History H/O brain surgery S/P cerebral aneurysm coil H/O breast biopsy left, benign H/O colonoscopy H/O repair of right rotator cuff H/O: hysterectomy History of tonsillectomy Family History Family History Mother Hypertension Cerebrovascular accident Family history of lupus erythematosus Sibling Hypertension Father Family history of diabetes mellitus in first degree relative Patient's father is Diabetes mellitus Social History Social History Smoking packs per day: 0.5 Smoking cigarettes per day: 10.0 Years smoked: 40 Smoking pack-years: 20.00 Smoking status: Former smoker Tobacco type: cigarettes Second hand tobacco smoke exposure: Yes Alcohol intake: current Drinks per week: 2 Alcohol use details: GLASSES WINE Substance use: never Substance use type: does not use Living arrangements: with family Spiritual care concerns: No Anes - Eval Final PreProcedure Day of Procedure 04/05/23 09:00 Patient weight: normal Heart: regular rate and rhythm Lungs: clear to auscultation Airway: Mallampati scale class II Neurological: alert and oriented Last oral intake: >/= 8 hours ASA classification: III Emergent: no Anesthetic plan: proceed Anesthesia type and monitoring: general GIVS and standard monitoring Results Review: All pre-operative results and documents have been reviewed as part of the pre-operative evaluation. Informed Consent: The patient's anesthetic plan and its attendant risks and benefits were discussed with the patient/family/POA. Questions were solicited and answers provided to the satisfaction of the patient/family/POA.
[2023-04-05 09:22] VITALS: BP 120/77; PULSE 63; RESP 17; O2SAT 98
[2023-04-05 09:32] VITALS: BP 132/85; PULSE 61; RESP 19; O2SAT 100
[2023-04-05 09:42] VITALS: BP 135/99; PULSE 67; RESP 17; O2SAT 100
== END 2023-04-05 09:50 | disposition home or self-care (01) ==
PROVIDERS: PCP Internal Medicine; Visit Provider Internal Medicine Gastroenterology
PROC: 0DJD8ZZ Inspection of Lower Intestinal Tract, Via Natural or Artificial Opening Endoscopic (ICD-10-PCS; CPT 45378; principal; 2023-04-05 09:00)
DX: Z12.11 Encounter for screening for malignant neoplasm of colon (principal); K63.5 Polyp of colon; K57.30 Diverticulosis of large intestine without perforation or abscess without bleeding; K64.8 Other hemorrhoids; I10 Essential (primary) hypertension; F41.9 Anxiety disorder, unspecified; Z86.19 Personal history of other infectious and parasitic diseases; Z79.82 Long term (current) use of aspirin; Z87.891 Personal history of nicotine dependence
CPT/HCPCS: 45380; 88305; J2704; J7120

== ENCOUNTER 2023-04-26 09:59 | Outpatient (CLI) | payer MEDICARE, SELFPAY ==
--- NOTE | ~2023-04-26 | CT_ITS ---
EXAMINATION: CT lung screening DATE: 04/26/2023 10:17 INDICATION: Z87.891 - Personal history of nicotine dependence TECHNIQUE: Computed tomography (CT) of the chest was performed without intravenous contrast. Addition al 3D reconstructions utilizing coronal maximum intensity projection (MIP) were performed. Automated exposure control and iterative reconstruction technique were employed. The dose-length product was 81 .46 mGy-cm. COMPARISON: None FINDINGS: 7 mm left lower lobe nodule. 2 mm noncalcified nodule in the right middle lobe. 4 small calcified nod ules consistent with old granulomatous disease in the right lower lobe. No pleural effusion. Heart si ze is normal. Small pericardial effusion. Ectatic ascending thoracic aorta measuring up to 4.1 cm in maximal diameter. No pathologically enlarged thoracic lymphadenopathy. Small sliding-type hiatal janae ia. Moderate thoracic spondylosis. Likely distal right clavicle resection. IMPRESSION: 1. Lung-RADS category 3: Probably benign. 1-2% chance of malignancy. Further evaluation is recommende d with noncontrast low-dose chest CT in 6 months. Reviewed, dictated and finalized at location A. IMPRESSION: 1. Lung-RADS category 3: Probably benign. 1-2% chance of malignancy. Further ev aluation is recommended with noncontrast low-dose chest CT in 6 months.
== END 2023-04-26 10:00 | disposition home or self-care (01) ==
PROVIDERS: PCP Internal Medicine; Visit Provider Nurse Practitioner Family
DX: Z12.2 Encounter for screening for malignant neoplasm of respiratory organs (principal); Z87.891 Personal history of nicotine dependence; R91.8 Other nonspecific abnormal finding of lung field
CPT/HCPCS: 71271

== ENCOUNTER 2023-06-21 13:53 | Emergency (ER) | payer MEDICARE, SELFPAY ==
--- NOTE | ~2023-06-21 | XR_ITS ---
EXAMINATION: XR chest 2V Exam Date/Time: 06/21/2023 16:25 CDT HISTORY: cough Comparison: 08/17/2019; CT lung screening 04/26/2023. RESULT: Lines, tubes, and devices: None. Lungs and pleura: Mild diffuse reticulonodular opacities. 7 mm left lower lobe nodule. Cardiomediastinal silhouette: Stable. Other: No acute osseous or upper abdominal finding. IMPRESSION: Pulmonary opacities may represent bronchiolitis, as can be seen with atypical infection, asthma, aspi ration, and small airways disease. Left lower lobe pulmonary nodule, prior recommendation for follow-up low-dose chest CT is unchanged ( should occur in October 2023). Reviewed, dictated and finalized at location K. IMPRESSION: Pulmonary opacities may represent bronchiolitis, as can be seen with atypical i nfection, asthma, aspiration, and small airways disease. Left lower lobe pulmonary nodule, prior recommendation for follow-up low-dose c hest CT is unchanged (should occur in October 2023).
--- NOTE | ~2023-06-21 | CT_ITS ---
EXAMINATION: CT brain wo con DATE: 06/21/2023 15:41 INDICATION: headache, hx of aneurysm . TECHNIQUE: Computed tomography (CT) of the head was performed without intravenous contrast. The mA wa s adjusted according to patient size. Iterative reconstruction technique was employed. The dose-lengt h product was 605.33 mGy-cm. COMPARISON: 02/08/2023. FINDINGS: No acute intracranial hemorrhage or extra-axial fluid collection. No hydrocephalus, mass, or herniation. No acute ischemic infarct. Unremarkable dural venous sinus attenuation. No acute osseous abnormality. The aerated spaces are clear. Embolization coils in the region of the anterior communication artery. Resulting beam hardening artif act obscures some brain parenchyma. Mild atrophy and chronic white matter change. Atherosclerotic int racranial calcification. Bilateral lens replacements. IMPRESSION: No acute intracranial process. Reviewed, dictated and finalized at location K.
[2023-06-21 14:18] VITALS: BP 162/89; PULSE 83; RESP 16; TEMP 37.1; O2SAT 99
[2023-06-21 14:38] VITALS: BP 146/88; PULSE 83; RESP 18; TEMP 37.2; O2SAT 98
--- NOTE | 2023-06-21 15:32 | ECG_ITS ---
Measurements Intervals [place] Rate: 83 P: 60 TN: 144 QRS: 22 QRSD: 93 T: 59 QT: 377 QTc: 444 Interpretive Statements SINUS RHYTHM POSSIBLE LEFT ATRIAL ENLARGEMENT BORDERLINE ECG COMPARED TO ECG 08/17/2019 09:48:38 NO SIGNIFICANT CHANGES Electronically Signed On 06-21-2023 16:13:22 CDT by Josh Wiseman D.O.
--- NOTE | 2023-06-21 15:34 | ED.HA ---
HPI - Headache General Chief Complaint: Headache Stated Complaint: headache Time Seen by Provider: 06/21/23 14:26 History of Present Illness HPI Narrative: 72-year-old female with a history of asthma and COPD, hepatitis C, hypertension, history of cerebral aneurysm repair approximately 10 years ago reports for evaluation for headache for the past 2 days. Patient reports the headache is in her right posterior occiput and at times behind her right eye and restoration. She reports associated photophobia and phonophobia. Denies nausea or vomiting, chest pain or abdominal pain, diarrhea. States she feels unsteady on her feet since the onset of headache. She denies focal numbness or weakness. She recently had cataract surgery but denies vision changes other than those from her recent surgery. States her blood pressures have been elevated at home between 1 54-1 67 systolic which is high for her. She also reports a sore throat and increased cough for the past couple of days with a low-grade temperature of 99.5-100.2. She denies shortness of breath, neck pain or nuchal rigidity, dental pain, tenderness to her face or restoration, difficulty walking or talking, difficulty swallowing denies recent head trauma or syncope, seizures.. Related Data Home Medications Medication Instructions Recorded Confirmed aspirin 81 mg tablet,delayed 81 mg PO DAILY 11/24/19 05/24/23 release (Shalonda Low Dose Aspirin) multivitamin (Daily Multi-Vitamin 1 tablet PO DAILY 06/16/21 05/24/23 tablet) sofosbuvir 400 mg-velpatasvir 100 1 tablet PO DAILY 05/24/23 05/24/23 mg tablet (Epclusa) Allergies Allergy/AdvReac Type Severity Reaction Status Date / Time venom-wasp Allergy Severe Swelling Verified 05/24/23 15:14 Review of Systems Review of Systems: CONSTITUTIONAL: See HPI EYES: Denies visual changes, redness, or discharge. ENT: Denies rhinorrhea, congestion, sore throat, or otalgia. CARDIOVASCULAR: Denies chest pain, palpitations, or edema. RESPIRATORY: Denies cough or dyspnea. GASTROINTESTINAL: Denies abdominal pain, nausea, vomiting, or diarrhea. GENITOURINARY: Denies dysuria or hematuria. SKIN: Denies rash or itching. MUSCULOSKELETAL: Denies back pain, joint pain, or myalgia. NEUROLOGIC: See HPI PSYCHIATRIC: Denies anxiety or depression. [facility] Past Medical History Medical History Anxiety Bronchitis Cerebral aneurysm Hepatitis C HTN (hypertension) Mass on back Seasonal allergies Wears dentures upper partial Wears glasses Surgical History Surgical History H/O brain surgery S/P cerebral aneurysm coil H/O breast biopsy left, benign H/O colonoscopy H/O repair of right rotator cuff H/O: hysterectomy History of tonsillectomy Family History Family History Mother Hypertension Cerebrovascular accident Family history of lupus erythematosus Sibling Hypertension Father Family history of diabetes mellitus in first degree relative Patient's father is Diabetes mellitus Social History Social History Smoking packs per day: 0.5 Smoking cigarettes per day: 10.0 Years smoked: 40 Smoking pack-years: 20.00 Smoking status: Former smoker Tobacco type: cigarettes Second hand tobacco smoke exposure: Yes Alcohol intake: current Drinks per week: 2 Alcohol use details: GLASSES WINE Substance use: never Substance use type: does not use Living arrangements: with family Spiritual care concerns: No Exam Narrative: GENERAL: Well-appearing, in no acute distress. Patient resting comfortably in exam bed. She is pleasant and conversational. HEAD: Normocephalic EYES: PERRLA, EOMI ENT: Nares clear. Mucous membranes moist. Oropharynx without tonsillar hypertrophy exuda
[2023-06-21] MEDS: diphenhydrAMINE HCl INJ 50 MG/ML VIAL 25 MG IV PUSH (16:13)
[2023-06-21] MEDS: SODIUM CHLORIDE 0.9% IV 1,000 ML 999 ML IV CONT (16:13)
[2023-06-21] MEDS: KETOROLAC 15 MG/ML VIAL (*BKC) IV PUSH (16:13)
[2023-06-21] MEDS: PROCHLORPERAZINE EDISYLATE 10 MG/2 ML VIAL IV PUSH (16:14)
[2023-06-21 16:25] LABS: Basophils Absolute Auto 0.1 K/mm3 (0.0-0.1); Eosinophils Absolute Auto 0.1 K/mm3 (0-0.3); Eosinophils Percent Auto 0.7 % (0-4.4); Hematocrit 43.4 % (37.0-47.0); Hemoglobin 13.9 g/dL (12.0-15.0); Immature Granulocyte Absolute 0.03 K/mm3 (0.00-0.031); Immature Granulocyte Percent A 0.4 % (0-0.5); Lymphocytes Absolute Auto 0.88 K/mm3 (0.9-3.2); Mean Corpuscular Hemoglobin 29.9 pg (26-34); Mean Corpuscular Volume 93.3 fl (80-100); Mean Platelet Volume 10.4 fl (7.4-10.4); Monocytes Absolute Auto 0.6 K/mm3 (0.1-0.6); Monocytes Percent Auto 8.9 % (2.6-8.5); Neutrophils Absolute Auto 5.1 K/mm3 (1.3-6.7); Platelet Count Result 219 k/mm3 (150-375); Red Blood Count 4.65 M/mm3 (4.2-5.4); Red Cell Distribution Width 13.6 % (11.5-14.5); White Blood Count 6.8 K/mm3 (4.5-10.0)
[2023-06-21 16:41] LABS: Alanine Aminotransferase 19 U/L (6-35); Albumin Level 4.5 g/dL (3.5-5.1); Alkaline Phosphatase 94 U/L (38-126); Anion Gap 7 mmol/L (8-16); Aspartate Amino Transferase 26 U/L (14-36); Bilirubin,Total 0.6 mg/dL (0.2-1.3); Blood Urea Nitrogen 14 mg/dL (7-17); Calcium 9.3 mg/dL (8.4-10.2); Carbon Dioxide 29 mmol/L (22-30); Chloride 105 mmol/L (98-107); Estimated CRCL calculation 45 ml/min; Estimated Glomerular Filt Rate 55; Glucose 101 mg/dL (65-110); Potassium 4.5 mmol/L (3.4-5.0); Sodium 141 mmol/L (137-145)
[2023-06-21 16:51] LABS: Strep Group A RT-PCR NOT DETECTED (Negative)
[2023-06-21 17:02] LABS: Influenza A QL RT-PCR Negative (Negative); Influenza B QL RT-PCR Negative (Negative); SARS-CoV-2 RNA PCR Positive (Negative)
[2023-06-21] MEDS: AZITHROMYCIN 250 MG TABLET 500 MG PO (17:51)
[2023-06-21 17:56] VITALS: BP 150/98; PULSE 79; RESP 19; TEMP 36.9; O2SAT 99
== END 2023-06-21 17:57 | disposition home or self-care (01) ==
PROVIDERS: Emergency Provider Physician Assistant; PCP Internal Medicine
DX: U07.1 COVID-19 (principal); R51.9 Headache, unspecified; J44.9 Chronic obstructive pulmonary disease, unspecified; I10 Essential (primary) hypertension; B19.20 Unspecified viral hepatitis C without hepatic coma; Z87.891 Personal history of nicotine dependence; Z90.710 Acquired absence of both cervix and uterus; R94.31 Abnormal electrocardiogram [ECG] [EKG]; R91.8 Other nonspecific abnormal finding of lung field
CPT/HCPCS: 36415; 70450; 71046; 80053; 85025; 87636; 87651; 93005; 96361; 96374; 96375; 99284; A9270; J0780; J1200; J1885; J7030

== ENCOUNTER 2023-07-19 09:57 | Outpatient (CLI) | payer MEDICARE, SELFPAY ==
[2023-07-19 10:35] LABS: Basophils Absolute Auto 0.1 K/mm3 (0.0-0.1); Basophils Percent Auto 1.3 % (0.2-1.2); Eosinophils Absolute Auto 0.2 K/mm3 (0-0.3); Eosinophils Percent Auto 2.7 % (0-4.4); Hematocrit 41.6 % (37.0-47.0); Hemoglobin 13.1 g/dL (12.0-15.0); Immature Granulocyte Absolute 0.02 K/mm3 (0.00-0.031); Immature Granulocyte Percent A 0.3 % (0-0.5); Lymphocytes Absolute Auto 1.68 K/mm3 (0.9-3.2); Mean Corpuscular HGB Conc 31.5 g/dl (32-36); Mean Corpuscular Hemoglobin 29.7 pg (26-34); Mean Corpuscular Volume 94.3 fl (80-100); Mean Platelet Volume 10.7 fl (7.4-10.4); Monocytes Absolute Auto 0.6 K/mm3 (0.1-0.6); Monocytes Percent Auto 9.2 % (2.6-8.5); Neutrophils Absolute Auto 3.5 K/mm3 (1.3-6.7); Neutrophils Percent Auto 58.5 % (45.5-73.1); Platelet Count Result 240 k/mm3 (150-375); Red Blood Count 4.41 M/mm3 (4.2-5.4); Red Cell Distribution Width 13.7 % (11.5-14.5)
[2023-07-19 10:52] LABS: Alanine Aminotransferase 18 U/L (6-35); Albumin Level 4.1 g/dL (3.5-5.1); Alkaline Phosphatase 71 U/L (38-126); Anion Gap 4 mmol/L (8-16); Aspartate Amino Transferase 23 U/L (14-36); Bilirubin,Total 0.6 mg/dL (0.2-1.3); Blood Urea Nitrogen 12 mg/dL (7-17); Calcium 8.8 mg/dL (8.4-10.2); Carbon Dioxide 30 mmol/L (22-30); Chloride 107 mmol/L (98-107); Cholesterol 203 mg/dL (0-200); Estimated Glomerular Filt Rate 55; Glucose 85 mg/dL (65-110); HDL Direct 75 mg/dL; Potassium 4.4 mmol/L (3.4-5.0); Sodium 141 mmol/L (137-145); Triglycerides 110 mg/dL (<150)
[2023-07-19 11:03] LABS: LDL Cholesterol Direct 87 mg/dL
== END 2023-07-19 09:58 | disposition home or self-care (01) ==
PROVIDERS: PCP Internal Medicine; Visit Provider Internal Medicine
DX: R53.83 Other fatigue (principal); R74.8 Abnormal levels of other serum enzymes
CPT/HCPCS: 36415; 80053; 80061; 84443; 85025

== ENCOUNTER 2023-08-21 11:48 | Outpatient (CLI) | payer MEDICARE, SELFPAY ==
[2023-08-21 13:14] LABS: Alanine Aminotransferase 23 U/L (6-35); Albumin Level 4.5 g/dL (3.5-5.1); Alkaline Phosphatase 84 U/L (38-126); Anion Gap 7 mmol/L (8-16); Aspartate Amino Transferase 30 U/L (14-36); Bilirubin,Total 0.5 mg/dL (0.2-1.3); Blood Urea Nitrogen 14 mg/dL (7-17); Calcium 9.7 mg/dL (8.4-10.2); Carbon Dioxide 28 mmol/L (22-30); Chloride 106 mmol/L (98-107); Estimated Glomerular Filt Rate 55; Glucose 92 mg/dL (65-110); Potassium 4.2 mmol/L (3.4-5.0); Sodium 141 mmol/L (137-145)
[2023-08-23 15:12] LABS: Hepatitis C RNA, Quant PCR <15 IU/mL
== END 2023-08-21 11:49 | disposition home or self-care (01) ==
LOC: ANHLAB 11:53
PROVIDERS: PCP Internal Medicine; Visit Provider Internal Medicine Gastroenterology
DX: R76.8 Other specified abnormal immunological findings in serum (principal)
CPT/HCPCS: 36415; 80053; 87522

== ENCOUNTER 2023-10-27 10:54 | Outpatient (CLI) | payer MEDICARE, SELFPAY ==
--- NOTE | ~2023-10-27 | CT_ITS ---
CT Scan of the Chest without Contrast: Clinical Indication: Abnormal findings of lung field Technique: Contiguous sections were acquired throughout the chest without intravenous contrast. Dose reduction technique was used on this scan by utilizing automated exposure control and iterative recon struction technique. The dose-length product (DLP) was 81.05 mGy-cm. COMPARISON: 04/26/2023 Findings: There is no evidence of any significant mediastinal, hilar or axillary lymphadenopathy. The mediastin al soft tissues appear normal. There is no evidence of pleural or pericardial effusion. Stable 9 mm noncalcified left lower lobe pulmonary nodule. No other pulmonary abnormality seen. Images through the upper abdomen reveal no abnormalities. Impression: Stable 9 mm left lower lobe pulmonary nodule. Reviewed, dictated and finalized at [facility]. ITY LINEMAN Impression: Stable 9 mm left lower lobe pulmonary nodule.
== END 2023-10-27 10:55 | disposition home or self-care (01) ==
PROVIDERS: PCP Internal Medicine; Visit Provider Nurse Practitioner Family
DX: R91.8 Other nonspecific abnormal finding of lung field (principal); R91.1 Solitary pulmonary nodule
CPT/HCPCS: 71250

== ENCOUNTER 2023-11-22 12:38 | Outpatient (CLI) | payer MEDICARE, SELFPAY ==
[2023-11-22 13:28] LABS: Alanine Aminotransferase 19 U/L (6-35); Alkaline Phosphatase 78 U/L (38-126); Anion Gap 2 mmol/L (8-16); Aspartate Amino Transferase 26 U/L (14-36); Bilirubin,Total 0.4 mg/dL (0.2-1.3); Blood Urea Nitrogen 16 mg/dL (7-17); Calcium 9.2 mg/dL (8.4-10.2); Carbon Dioxide 28 mmol/L (22-30); Chloride 110 mmol/L (98-107); Estimated Glomerular Filt Rate > 60; Glucose 101 mg/dL (65-110); Sodium 140 mmol/L (137-145)
[2023-11-24 16:19] LABS: Hepatitis C RNA, Quant PCR <15 IU/mL
== END 2023-11-22 12:39 | disposition home or self-care (01) ==
PROVIDERS: PCP Internal Medicine; Visit Provider Internal Medicine Gastroenterology
DX: R76.8 Other specified abnormal immunological findings in serum (principal)
CPT/HCPCS: 36415; 80053; 87522

== ENCOUNTER 2024-01-20 10:31 | Emergency (ER) | payer MEDICARE, SELFPAY ==
--- NOTE | ~2024-01-20 | XR_ITS ---
XR chest 1V portable DATE: 01/20/2024 11:54 INDICATION: Cough for 4 days. COPD. Asthma. Left lung nodule. TECHNIQUE: Portable AP chest on January 20, 2024 at 1152 hours COMPARISON: 10/27/2023 CTA chest 06/21/2023 2 view chest FINDINGS: Normal heart size. Is aortic calcification and tortuosity. No hilar or mediastinal enlargem ent. No pulmonary infiltrate or consolidation. Previously reported left lower lobe pulmonary nodules not r eadily detected on this chest radiograph; CT examination is more sensitive. No pulmonary infiltrate or consolidation, pleural effusion or pulmonary mass congestion or pneumothor ax. Mild thoracic levoscoliosis. Diffuse osteopenia. Bilateral rotator cuff atrophy. IMPRESSION: 9 mm left lower lobe pulmonary nodule is demonstrated better advantage on 10/27/2023 CTA c hest No active cardiac pulmonary disease is noted otherwise Aortic atherosclerosis Reviewed, dictated and finalized at location A. IMPRESSION: 9 mm left lower lobe pulmonary nodule is demonstrated better advant age on 10/27/2023 CTA chest No active cardiac pulmonary disease is noted otherwise Aortic atherosclerosis
[2024-01-20 10:48] VITALS: BP 154/101; PULSE 75; RESP 16; TEMP 36.6; O2SAT 100
[2024-01-20 10:49] VITALS: RESP 18; O2SAT 100
[2024-01-20 10:58] VITALS: BP 153/83; PULSE 72; RESP 19; O2SAT 100
[2024-01-20 11:33] LABS: Influenza A QL RT-PCR Negative (Negative); Influenza B QL RT-PCR Negative (Negative); RSV RNA, RT-PCR Positive (Negative); SARS-CoV-2 RNA PCR Negative (Negative)
--- NOTE | 2024-01-20 11:54 | ED.FEVER ---
HPI - Fever General Chief Complaint: Fever Stated Complaint: unproductive cough, fever Time Seen by Provider: 01/20/24 10:58 Source: patient Mode of arrival: ambulatory Limitations: no limitations History of Present Illness HPI Narrative: This is a 73-year-old female with PMH of COPD who presents to the ED with chief complaint of URI symptoms for the past 4-5 days. Patient reports initially started feeling more fatigued and run down. Reports that a couple days later she developed a pretty consistent cough. States it is nonproductive. Reports low-grade fevers but nothing more than 100.4. Endorses congestion. Denies shortness of breath, chest pain, nausea, vomiting, abdominal pain. Related Data Home Medications Medication Instructions Recorded Confirmed aspirin 81 mg tablet,delayed 81 mg PO DAILY 11/24/19 11/19/23 release (Shalonda Low Dose Aspirin) multivitamin (Daily Multi-Vitamin 1 tablet PO DAILY 06/16/21 11/19/23 tablet) sofosbuvir 400 mg-velpatasvir 100 1 tablet PO DAILY 05/24/23 11/19/23 mg tablet (Epclusa) Allergies Allergy/AdvReac Type Severity Reaction Status Date / Time venom-wasp Allergy Severe Swelling Verified 11/16/23 09:32 Review of Systems Review of Systems: All systems as dictated in HPI PENDING SALE TO [facility] Past Medical History Medical History Anxiety Bronchitis Cerebral aneurysm Hepatitis C HTN (hypertension) Mass on back Seasonal allergies Wears dentures upper partial Wears glasses Surgical History Surgical History H/O brain surgery S/P cerebral aneurysm coil H/O breast biopsy left, benign H/O colonoscopy H/O repair of right rotator cuff H/O: hysterectomy History of tonsillectomy Family History Family History Mother Hypertension Cerebrovascular accident Family history of lupus erythematosus Sibling Hypertension Father Family history of diabetes mellitus in first degree relative Patient's father is Diabetes mellitus Social History Social History Smoking packs per day: 0.5 Smoking cigarettes per day: 10.0 Years smoked: 40 Smoking pack-years: 20.00 Smoking status: Former smoker Tobacco type: cigarettes Second hand tobacco smoke exposure: Yes Alcohol intake: current Drinks per week: 2 Alcohol use details: GLASSES WINE Substance use: never Substance use type: does not use Living arrangements: with family Spiritual care concerns: No Exam Narrative: GENERAL: Well-appearing, well-nourished, and in no acute distress. HEAD: Normocephalic, atraumatic. EYES: PERRLA and EOMI. ENT: Nares clear, no rhinorrhea or epistaxis. Mucous membranes moist. Oropharynx without tonsillar hypertrophy exudate or other lesions. NECK: Supple. No adenopathy or masses. CHEST: No respiratory distress. Clear to auscultation. No wheezes rales or rhonchi HEART: Regular rate and rhythm. No murmur heard. Normal peripheral pulses. ABDOMEN: Soft, nontender, nondistended, normal active bowel sounds. MSK: Normal range of motion. No edema. SKIN: Warm, dry, no rash. NEURO: Alert and oriented x3. No focal deficits. PSYCH: Normal mood and affect. Course Vital Signs Vital signs: Vital Signs Temperature 97.9 F 01/20/24 10:48 Pulse Rate 75 01/20/24 10:48 Respiratory Rate 16 01/20/24 10:48 Blood Pressure 154/101 H 01/20/24 10:48 Pulse Oximetry 100 01/20/24 10:48 Temperature 98.5 F 01/20/24 12:57 Pulse Rate 72 01/20/24 12:57 Respiratory Rate 18 01/20/24 12:57 Blood Pressure 135/90 01/20/24 12:57 Pulse Oximetry 100 01/20/24 12:57 MDM - Fever MDM Narrative Medical decision making narrative: This is a 73-year-old female who presents to the ED with chief complaint of URI symp
[2024-01-20 12:57] VITALS: BP 135/90; PULSE 72; RESP 18; TEMP 36.9; O2SAT 100
== END 2024-01-20 13:00 | disposition home or self-care (01) ==
PROVIDERS: Emergency Medicine; Emergency Provider Physician Assistant; PCP Internal Medicine
DX: J22 Unspecified acute lower respiratory infection (principal); B97.4 Respiratory syncytial virus as the cause of diseases classified elsewhere; Z20.822 Contact with and (suspected) exposure to COVID-19; Z86.19 Personal history of other infectious and parasitic diseases; Z87.891 Personal history of nicotine dependence; Z90.710 Acquired absence of both cervix and uterus; I70.0 Atherosclerosis of aorta; R91.1 Solitary pulmonary nodule; Z79.82 Long term (current) use of aspirin
CPT/HCPCS: 71045; 87637; 99283

== ENCOUNTER 2024-10-17 13:44 | Outpatient (CLI) | payer MEDICARE, SELFPAY ==
[2024-10-17 14:10] LABS: Basophils Absolute Auto 0.1 K/mm3 (0.0-0.1); Basophils Percent Auto 1.1 % (0.2-1.2); Eosinophils Absolute Auto 0.2 K/mm3 (0-0.3); Eosinophils Percent Auto 3.2 % (0-4.4); Hematocrit 40.2 % (37.0-47.0); Hemoglobin 12.8 g/dL (12.0-15.0); Immature Granulocyte Absolute 0.02 K/mm3 (0.00-0.031); Immature Granulocyte Percent A 0.3 % (0-0.5); Lymphocytes Absolute Auto 1.91 K/mm3 (0.9-3.2); Mean Corpuscular HGB Conc 31.8 g/dl (32-36); Mean Corpuscular Hemoglobin 29.5 pg (26-34); Mean Corpuscular Volume 92.6 fl (80-100); Mean Platelet Volume 10.1 fl (7.4-10.4); Monocytes Absolute Auto 0.5 K/mm3 (0.1-0.6); Neutrophils Absolute Auto 3.9 K/mm3 (1.3-6.7); Neutrophils Percent Auto 59.4 % (45.5-73.1); Platelet Count Result 254 k/mm3 (150-375); Red Blood Count 4.34 M/mm3 (4.2-5.4); Red Cell Distribution Width 13.4 % (11.5-14.5); White Blood Count 6.6 K/mm3 (4.5-10.0)
[2024-10-17 14:22] LABS: Alanine Aminotransferase 19 U/L (6-35); Albumin Level 4.1 g/dL (3.5-5.1); Alkaline Phosphatase 73 U/L (38-126); Anion Gap 1 mmol/L (4-12); Aspartate Amino Transferase 26 U/L (14-36); Bilirubin,Total 0.4 mg/dL (0.2-1.3); Blood Urea Nitrogen 19 mg/dL (7-17); Carbon Dioxide 29 mmol/L (22-30); Chloride 109 mmol/L (98-107); Cholesterol 183 mg/dL (0-200); Estimated Glomerular Filt Rate 49; Glucose 91 mg/dL (65-110); HDL Direct 82 mg/dL; Potassium 4.3 mmol/L (3.4-5.0); Sodium 139 mmol/L (137-145); Triglycerides 110 mg/dL (<150)
[2024-10-17 14:33] LABS: LDL Cholesterol Direct 65 mg/dL
== END 2024-10-17 13:45 | disposition home or self-care (01) ==
PROVIDERS: PCP Internal Medicine; Visit Provider Internal Medicine
DX: E78.5 Hyperlipidemia, unspecified (principal); R53.83 Other fatigue; I10 Essential (primary) hypertension; B19.20 Unspecified viral hepatitis C without hepatic coma
CPT/HCPCS: 36415; 80053; 80061; 84443; 85025

== ENCOUNTER 2025-02-25 14:20 | Outpatient (CLI) | payer MEDICARE, SELFPAY ==
--- NOTE | ~2025-02-25 | XR_ITS ---
Clinical Indication: Cough PA and lateral views of the chest: Comparison: 01/20/2024 Findings: The lungs are clear, without evidence of focal consolidation or pleural effusion. Cardiome diastinal silhouette is within normal limits. Bones and soft tissues are unremarkable. Impression: Normal chest. Reviewed, dictated and finalized at location . Impression: Normal chest.
--- OUTSIDE RECORDS SUMMARY | 2025-02-25 14:37 | XMS_ITS | Clinical Summary ---
Author Organization [address] Address [facility] [place] [address] Care Team Providers Care Billing And Accounting Staff Assistant Name Role Phone Lawson Cloud MD Primary Care Provider [phone] Allergies No known active allergies Medications Symbicort 80-4.5 mcg/actuation inhaler Inhale 2 puffs 2 (two) times a day 04/12/2023 Active lisinopriL (PRINIVIL,ZESTR IL) 10 mg tablet Take 1 tablet (10 mg total) by mouth daily 02/07/2023 Active venlafaxine XR (EFFEXOR-XR) 75 mg 24 hr capsule Take 1 capsule (75 mg total) by mouth daily 01/28/2023 Active jp-ucoqajw-wuc- iron fm-FA-vitK 18 mg iron-600 mcg-80 mcg tablet Take by mouth daily Active aspirin 81 mg enteric coated tablet Take 1 tablet (81 mg total) by mouth daily Active buPROPion SR (WELLBUTRIN SR) 150 mg 12 hr tablet Take 1 tablet (150 mg total) by mouth 2 (two) times a day Active sofosbuvir-velp atasvir (Epclusa) 400-100 mg tablet per tabletIndicatio ns:Positive hepatitis C antibody test Take 1 tablet by mouth daily 28 tablet 2 06/21/2023 Active Active Problems Problem Noted Date Diagnosed Date Positive hepatitis C antibody test 04/20/2023 Assessment & Plan (04/20/2023 5:09 PM CDT): Briefly, history of HCV that was originally diagnosed over 20 years ago with HCV+ sexual partner () - previously following with Dr. Phan ([facility]). She has never received HCV specific treatment. Per chart review, +HCV Ab in 12/2019 without AST/ALT, Alk Phos/bilirubin abnormalities. No HCV RNA or genotype for further characterization is available. Currently asymptomatic without signs on exam to suggest decompensation. Spontaneous HCV clearance is possible but will complete workup as below for confirmation. -Ordered CMP, CBC, HCV RNA PCR/genotype, Hep B sAg, and FibroTest Essential hypertension 04/20/2023 Surgical History Surgery Date Site/Laterality Comments BREAST BIOPSY Left Benign ROTATOR CUFF REPAIR Right HYSTERECTOMY TONSILLECTOMY Medical History Medical History Date Comments HTN (hypertension) Depression Copd Anxiety Cerebral aneurysm s/p cerebral a neursym coil Hepatitis C Family History Medical History Relation Name Comments CABG Father Diabetes type II Father CVA Mother HTN Mother Lupus Mother Relation Name Status Comments Father Mother Social History Tobacco Use Types Packs/Day Years Used Date Smoking Tobacco: Former Cigarettes 0.5 25 0 06/1997 - 06/2022 Tobacco Cessation:Counseling Given: Not Answered AUDIT-C Answer Date Recorded Q1: How often do you have a drink containing alc ohol? 2-3 times a week 04/20/2023 Q2: How many drinks containi ng alcohol do you have on a typical day when you are drinking? 1 or 2 04/20/2023 Q3: How often do you have si x or more drinks on one occasion? Never 04/20/2023 Personal Safety Answer Date Recorded Getting School Help Needed Not on file 11/18 Comments Unknown Sex and Gender Information Value Date Recorded Sex Assigned at Not on file Legal Sex Female 10:06 PM IN HOUSE COUNSEL Gender Identity Not on file Sexual Orientation Not on file Obstetrics History Last Filed Vital Signs Vital Sign Reading Time Taken Comments Blood Pressure 127/88 04/20/2023 2:12 PM CDT Pulse 71 04/20/2023 2:12 PM CDT Temperature 36.1 C (97 F) 04/20/2023 2:12 PM CDT Respiratory Rate - - Oxygen Saturation 94% 04/20/2023 2:12 PM CDT Inhaled Oxygen Concentration - - Weight 76.7 kg (169 lb) 04/20/2023 2:12 PM CDT Height 160 cm (5' 3 ) 04/20/2023 2:12 PM CDT Body Mass Index 29.94 04/20/2023 2:12 PM CDT Plan of Treatment Health Maintenance Due Date Last Done Comments Breast Cancer Screening-Mammogram 1952 Colon Cancer Screening-Colonoscopy 1950 Depression Screening 1952 Fall Risk Assessment 1950 Osteoporosis Screening-Bone Density Scan 1952 Hepatitis B Screening 1970 Zoster Vaccine (1 of 2) 2002 Well Visit 65+ 2017 Covid-19 Vaccine (2023-2 5 season) 2024 07/31/2022, 07/23/2021, 10/25/2020, Additional history exists Influenza Vaccine (#1) 2024 07/23/2022 DTaP/Tdap/Td Vaccine (2 - Td or Tdap) 06/08/2031 06/08/2021 Pneumococcal vaccine 65+ Completed 07/23/2022 Hepatitis C Screening Completed 04/20/2023 , 04/20/2023, 04/20/2023, Additional history exists Procedures Procedure Name Priority Date/Time Associated Diagnosis Comments HEPATITIS C RNA, QUANTITATIVE, PCR Routine 04/20/2023 3:07 PM CDT Positive hepatitis C antibody test from Last 3 Months or Most Recently Relevant to Health Maintenance Results * (ABNORMAL) Hepatitis C (HCV) RNA PCR, quantitative (04/20/2023 3:07 PM CDT) [facility] HCV RNA result Detected( A) [facility] Comment: The quantifiable range of this assay is 15 IU/mL to 100,000,000 IU/mL (1.18 log IU/mL to 8.00 log IU/mL). Testing was performed by the [facility]00 HCV Test ([employer] Testing performed at [facility] Current Interpretive Data was last revised on 2021 HCV RNA IU/mL 7,240,000 IUnits/mL [facility] HCV RNA log IU/mL 6.86 log IUnits/mL [facility] Blood 04/20/2023 3:07 PM CDT 04/20/2023 5:28 PM CDT Tera Meeks MD LAB MICROBIOLOGY - GEN ERAL ORDERABLES Final Result [facility] Department [place] [address] from Last 3 Months or Most Recently Relevant to Health Maintenance Insurance [employer] MEDIC[employer] PPO [employer] MED[employer] PPO Care Teams Billing And Accounting Staff Assistant Relationship Specialty Start Date End Date Lawson Cloud MD [address] [facility] [address] [place] [address] PCP - General Internal Medicine 07/20/22
--- OUTSIDE RECORDS SUMMARY | 2025-02-25 14:38 | XMS_ITS | Continuity of Care Document ---
Author Organization [facility] Address [address] [place] [address] Phone Care Team Providers Care Pet Care Worker Name Role Phone Waters OD, Jose Unavailable Unavailable Advance Directives Directive Yes / No Effective Date File Name No Information Encounters Encounter Description Practice Location Reason(s) For Visit Diagnoses Date Provider Providers Copied on Encounter [facility], [address], [place], [place], [id number], [place] tel:[phone] [facility] No Information 4-200 2 Waters OD Jose. [address] , [address], [place], [address], [place]. tel:[phone] Family History Family Member Type Diagnosis Age [...]
--- OUTSIDE RECORDS SUMMARY | 2025-02-25 14:38 | XMS_ITS | Referral Summary ---
Author Organization [address] Address [facility] [place] [address] Care Team Providers Care Truck Driver Rubbish Collector Name Role Phone Lawson Cloud MD Primary Care Provider +1- [phone] Allergies No known active allergies Medications Symbicort 80-4.5 mcg/actuation inhaler Inhale 2 puffs 2 (two) times a day 04/12/2023 Active lisinopriL (PRINIVIL,ZESTR IL) 10 mg tablet Take 1 tablet (10 mg total) by mouth daily 02/07/2023 Active venlafaxine XR (EFFEXOR-XR) 75 mg 24 hr capsule Take 1 capsule (75 mg total) by mouth daily 01/28/2023 Active pr-eqyqsui-bvz- iron fm-FA-vitK 18 mg iron-600 mcg-80 mcg [...] () - previously following with Dr. Phan ([facility]). 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 Gender Identity Not on file Sexual Orientation Not on file Last Filed Vital Signs Vital Sign Reading [...] 04/20/2023 2:12 PM CDT Plan of Treatment Not on file Procedures Procedure Name Priority Date/Time Associated Diagnosis Comments HEPATITIS C RNA, QUANTITATIVE, PCR Routine 04/20/2023 3:07 PM CDT Positive hepatitis C antibody test from Last 3 Months or Most Recently Relevant to Health Maintenance Results * (ABNORMAL) Hepatitis C (HCV) RNA PCR, quantitative (04/20/2023 3:07 PM CDT) HCV RNA result Detected( A) [facility] Comment: The quantifiable range of this assay is 15 IU/mL to 100,000,000 IU/mL (1.18 log IU/mL to 8.00 log IU/mL). Testing was performed by the DARSHAN 6800 HCV Test ([employer] Testing performed at [facility] Current Interpretive Data was last revised on 2021 HCV RNA IU/mL 7,240,000 IUnits/mL [facility] HCV RNA log IU/mL 6.86 log IUnits/mL [facility] Blood 04/20/2023 3:07 PM CDT 04/20/2023 5:28 PM CDT us Tera Meeks MD LAB MICROBIOLOGY - GEN ERAL ORDERABLES Final Result [facility] One [facility] Department [place] [address] from Last 3 Months or Most Recently Relevant to Health Maintenance Insurance HUMANA CHOICE MEDICARE PPO HUMANA CHOICE MEDICARE PPO Care Teams Truck Driver Rubbish Collector Relationship Specialty Start Date End Date Lawson Cloud MD [address] [facility] 120 [place] [address] PCP - General Internal Medicine 07/20/22
== END 2025-02-25 14:21 | disposition home or self-care (01) ==
PROVIDERS: PCP Internal Medicine; Visit Provider Internal Medicine
DX: R05.9 Cough, unspecified (principal)
CPT/HCPCS: 71046

== ENCOUNTER 2025-02-28 14:13 | Outpatient (CLI) | payer MEDICARE, SELFPAY ==
--- NOTE | ~2025-02-28 | MM_ITS ---
EXAMINATION: MM screening [facility] BI w hilario HISTORY: Screening TECHNIQUE: Craniocaudal and mediolateral oblique 3-D tomosynthesis images were obtained and synthetic 2-D images were generated. CAD analysis was submitted and interpreted. COMPARISON: Comparison to multiple prior studies sequentially, with oldest reviewed study dated 06/12. BREAST PARENCHYMAL COMPOSITION: Not dense: There are scattered areas of fibroglandular density. FINDINGS: There is no evidence of suspicious mass, calcification, or architectural distortion to sugg est malignancy in either breast. There has been no suspicious interval change. IMPRESSION: 1. No mammographic evidence of malignancy. 2. Recommend routine screening mammography in one year. BI-RADS Category 1: Negative Reviewed, dictated and finalized at location A.
--- OUTSIDE RECORDS SUMMARY | 2025-02-28 14:18 | XMS_ITS | Clinical Summary ---
Author Organization [address] Address [facility] [place] [address] Care Team Providers Care Postal Mail Carrier Name Role Phone Lawson Cloud MD Primary Care Provider +1- [phone] Allergies No known active allergies Medications Symbicort 80-4.5 mcg/actuation inhaler Inhale 2 puffs 2 (two) times a day 04/12/2023 Active lisinopriL (PRINIVIL,ZESTR IL) 10 mg tablet Take 1 tablet (10 mg total) by mouth daily 02/07/2023 Active venlafaxine XR (EFFEXOR-XR) 75 mg 24 hr capsule Take 1 capsule (75 mg total) by mouth daily 01/28/2023 Active vh-hwdhdvt-spo- iron fm-FA-vitK 18 mg iron-600 mcg-80 mcg [...] () - previously following with Dr. Phan ([facility]). 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 Testing was performed by the DARSHAN 6800 HCV Test ([employer] Testing performed at [facility] Current Interpretive Data was last revised on 2021 HCV RNA IU/mL 7,240,000 IUnits/mL [facility] HCV RNA log IU/mL 6.86 log IUnits/mL [facility] Blood 04/20/2023 3:07 PM CDT 04/20/2023 5:28 PM CDT Tera Meeks MD LAB MICROBIOLOGY - GEN ERAL ORDERABLES Final Result [facility] One [facility] Department [place] [address] from Last 3 Months or Most Recently Relevant to Health Maintenance Insurance HUMANA CHOICE MEDICARE PPO HUMANA CHOICE MEDICARE PPO Care Teams Postal Mail Carrier Relationship Specialty Start Date End Date Lawson Cloud MD [address] [facility] 120 [place] [address] PCP - General Internal Medicine 07/20/22
--- OUTSIDE RECORDS SUMMARY | 2025-02-28 14:18 | XMS_ITS | Referral Summary ---
Author Organization [address] Address [facility]4 [place] [address] Care Team Providers Care Jv Baseball Coach Name Role Phone Lawson Cloud MD Primary Care Provider +1- [phone] Allergies No known active allergies Medications Symbicort 80-4.5 mcg/actuation inhaler Inhale 2 puffs 2 (two) times a day 04/12/2023 Active lisinopriL (PRINIVIL,ZESTR IL) 10 mg tablet Take 1 tablet (10 mg total) by mouth daily 02/07/2023 Active venlafaxine XR (EFFEXOR-XR) 75 mg 24 hr capsule Take 1 capsule (75 mg total) by mouth daily 01/28/2023 Active wf-yvwcnvp-ahc- iron fm-FA-vitK 18 mg iron-600 mcg-80 mcg [...] on file 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 Testing was performed by the DARSHAN 6800 HCV Test ([employer] Testing performed at [facility] Current Interpretive Data was last revised on 2021 HCV RNA IU/mL 7,240,000 IUnits/mL [facility] HCV RNA log IU/mL 6.86 log IUnits/mL [facility] Blood 04/20/2023 3:07 PM CDT 04/20/2023 5:28 PM CDT us Tera Meeks MD LAB MICROBIOLOGY - GEN ERAL ORDERABLES Final Result [facility] One [facility] Department [place] [address] from Last 3 Months or Most Recently Relevant to Health Maintenance Insurance HUMANA CHOICE MEDICARE PPO HUMANA CHOICE MEDICARE PPO Care Teams Jv Baseball Coach Relationship Specialty Start Date End Date Lawson Cloud MD [address] [facility] 120 [place] [address] PCP - General Internal Medicine 07/20/22
--- OUTSIDE RECORDS SUMMARY | 2025-02-28 14:18 | XMS_ITS | Continuity of Care Document ---
Author Organization [facility] Address [address] [place] [address] Phone Care Team Providers Care Slip Injector And Applicator Name Role Phone Waters OD, Jose Unavailable Unavailable Advance Directives Directive Yes / No Effective Date File Name No Information Encounters Encounter Description Practice Location Reason(s) For Visit Diagnoses Date Provider Providers Copied on Encounter [facility], [address], [place], [place], [id number], [place] tel:[phone] [facility] No Information 4-200 2 Waters OD Jose. [address] , [address], [place], [address], [place]. tel:[phone] Family History Family Member Type Diagnosis Age At Onset No Information Payers Payer name Insurance type Covered libertarian ID Authoriza tion(s) No Information Social History [...]
== END 2025-02-28 14:14 | disposition home or self-care (01) ==
LOC: ANHIMG 14:16
PROVIDERS: PCP Internal Medicine; Visit Provider Internal Medicine
DX: Z12.31 Encounter for screening mammogram for malignant neoplasm of breast (principal)
CPT/HCPCS: 77063; 77067

== ENCOUNTER 2025-04-23 09:08 | Outpatient (CLI) | payer MEDICARE, SELFPAY ==
--- NOTE | ~2025-04-23 | XR_ITS ---
XR abdomen/kub 1V 04/23/2025 09:30 INDICATION: Constipation TECHNIQUE: KUB COMPARISON: None FINDINGS: Bowel gas pattern is normal. Moderate colonic fecal loading. There is no evidence of free a ir, mass, organomegaly, ascites or obstruction. No abnormal calculi are seen. The bones appear inta ct. IMPRESSION: 1: No acute abdominal abnormality identified. Reviewed, dictated and finalized at location A.
--- OUTSIDE RECORDS SUMMARY | 2025-04-23 09:17 | XMS_ITS | Referral Summary ---
Author Organization [address] Address [facility]4 [place] [address] Care Team Providers Care Injection Press Operator Name Role Phone Lawson Cloud MD Primary Care Provider +1- [phone] Allergies No known active allergies Medications Symbicort 80-4.5 mcg/actuation inhaler Inhale 2 puffs 2 (two) times a day 04/12/2023 Active lisinopriL (PRINIVIL,ZESTR IL) 10 mg tablet Take 1 tablet (10 mg total) by mouth daily 02/07/2023 Active venlafaxine XR (EFFEXOR-XR) 75 mg 24 hr capsule Take 1 capsule (75 mg total) by mouth daily 01/28/2023 Active rp-kyrgoyc-tup- iron fm-FA-vitK 18 mg iron-600 mcg-80 mcg [...] () - previously following with Dr. Phan ([facility]). 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 Testing was performed by the DARSHAN 6800 HCV Test ([employer] Testing performed at [facility] Current Interpretive Data was last revised on 2021 HCV RNA IU/mL 7,240,000 IUnits/mL [facility] HCV RNA log IU/mL 6.86 log IUnits/mL [facility] Blood 04/20/2023 3:07 PM CDT 04/20/2023 5:28 PM CDT us Tera Meeks MD LAB MICROBIOLOGY - GEN ERAL ORDERABLES Final Result [facility] One [facility] Department [place] [address] from Last 3 Months or Most Recently Relevant to Health Maintenance Insurance HUMANA CHOICE MEDICARE PPO HUMANA CHOICE MEDICARE PPO Care Teams Injection Press Operator Relationship Specialty Start Date End Date Lawson Cloud MD [address] [facility] 120 [place] [address] PCP - General Internal Medicine 07/20/22
--- OUTSIDE RECORDS SUMMARY | 2025-04-23 09:17 | XMS_ITS | Clinical Summary ---
Author Organization [address] Address [facility]4 [place] [address] Care Team Providers Care Mannequin Coloring Artist Name Role Phone Lawson Cloud MD Primary Care Provider +1- [phone] Allergies No known active allergies Medications Symbicort 80-4.5 mcg/actuation inhaler Inhale 2 puffs 2 (two) times a day 04/12/2023 Active lisinopriL (PRINIVIL,ZESTR IL) 10 mg tablet Take 1 tablet (10 mg total) by mouth daily 02/07/2023 Active venlafaxine XR (EFFEXOR-XR) 75 mg 24 hr capsule Take 1 capsule (75 mg total) by mouth daily 01/28/2023 Active qa-vuchagr-pgb- iron fm-FA-vitK 18 mg iron-600 mcg-80 mcg [...] () - previously following with Dr. Phan ([facility]). 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 Testing was performed by the DARSHAN 6800 HCV Test ([employer] Testing performed at [facility] Current Interpretive Data was last revised on 2021 HCV RNA IU/mL 7,240,000 IUnits/mL [facility] HCV RNA log IU/mL 6.86 log IUnits/mL [facility] Blood 04/20/2023 3:07 PM CDT 04/20/2023 5:28 PM CDT Tera Meeks MD LAB MICROBIOLOGY - GEN ERAL ORDERABLES Final Result [facility] One [facility] Department [place] [address] from Last 3 Months or Most Recently Relevant to Health Maintenance Insurance HUMANA CHOICE MEDICARE PPO HUMANA CHOICE MEDICARE PPO Care Teams Mannequin Coloring Artist Relationship Specialty Start Date End Date Lawson Cloud MD [address] [facility] 120 [place] [address] PCP - General Internal Medicine 07/20/22
== END 2025-04-23 09:09 | disposition home or self-care (01) ==
PROVIDERS: PCP Internal Medicine; Visit Provider Internal Medicine
DX: K59.00 Constipation, unspecified (principal)
CPT/HCPCS: 74018

== ENCOUNTER 2025-05-01 11:06 | Outpatient (CLI) | payer MEDICARE, SELFPAY ==
--- OUTSIDE RECORDS SUMMARY | 2025-05-01 11:25 | XMS_ITS | Continuity of Care Document ---
Author Organization [facility] Address [address] [place] [address] Phone Care Team Providers Care General Machinist Name Role Phone Waters OD, Jose Unavailable Unavailable Advance Directives Directive Yes / No Effective Date File Name No Information Encounters Encounter Description Practice Location Reason(s) For Visit Diagnoses Date Provider Providers Copied on Encounter [facility], [address], [place], [place], [address], [place] tel:[phone] [facility] No Information 4-200 2 Waters OD Jose. [address] , [address], [place], [address], [place]. tel:[phone] Family History Family Member Type Diagnosis Age At Onset No Information Payers Payer name Insurance type Covered constitution party ID Authoriza tion(s) No Information Social History [...]
--- OUTSIDE RECORDS SUMMARY | 2025-05-01 11:25 | XMS_ITS | Clinical Summary ---
Author Organization [address] Address [facility]4 [place] [address] Care Team Providers Care Blind Eyeletter Name Role Phone Lawson Cloud MD Primary Care Provider +1- [phone] Allergies No known active allergies Medications Symbicort 80-4.5 mcg/actuation inhaler Inhale 2 puffs 2 (two) times a day 04/12/2023 Active lisinopriL (PRINIVIL,ZESTR IL) 10 mg tablet Take 1 tablet (10 mg total) by mouth daily 02/07/2023 Active venlafaxine XR (EFFEXOR-XR) 75 mg 24 hr capsule Take 1 capsule (75 mg total) by mouth daily 01/28/2023 Active pa-fwwmaix-axp- iron fm-FA-vitK 18 mg iron-600 mcg-80 mcg [...] previously following with Dr. Phan ([facility]). 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 Testing was performed by the DARSHAN 6800 HCV Test ([employer] Testing performed at [facility] Current Interpretive Data was last revised on 2021 HCV RNA IU/mL 7,240,000 IUnits/mL [facility] HCV RNA log IU/mL 6.86 log IUnits/mL [facility] Blood 04/20/2023 3:07 PM CDT 04/20/2023 5:28 PM CDT Tera Meeks MD LAB MICROBIOLOGY - GEN ERAL ORDERABLES Final Result [facility] One [facility] Department [place] [address] from Last 3 Months or Most Recently Relevant to Health Maintenance Insurance HUMANA CHOICE MEDICARE PPO HUMANA CHOICE MEDICARE PPO Care Teams Blind Eyeletter Relationship Specialty Start Date End Date Lawson Cloud MD [address] [facility] [address] [place] [address] PCP - General Internal Medicine 07/20/22
--- OUTSIDE RECORDS SUMMARY | 2025-05-01 11:25 | XMS_ITS | Referral Summary ---
Author Organization [address] Address [facility]4 [place] [address] Care Team Providers Care Breaker Hand Name Role Phone Lawson Cloud MD Primary Care Provider +1- [phone] Allergies No known active allergies Medications Symbicort 80-4.5 mcg/actuation inhaler Inhale 2 puffs 2 (two) times a day 04/12/2023 Active lisinopriL (PRINIVIL,ZESTR IL) 10 mg tablet Take 1 tablet (10 mg total) by mouth daily 02/07/2023 Active venlafaxine XR (EFFEXOR-XR) 75 mg 24 hr capsule Take 1 capsule (75 mg total) by mouth daily 01/28/2023 Active xa-oluclko-zps- iron fm-FA-vitK 18 mg iron-600 mcg-80 mcg [...] () - previously following with Dr. Phan ([facility]). 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 Testing was performed by the DARSHAN 6800 HCV Test ([employer] Testing performed at [facility] Current Interpretive Data was last revised on 2021 HCV RNA IU/mL 7,240,000 IUnits/mL [facility] HCV RNA log IU/mL 6.86 log IUnits/mL [facility] Blood 04/20/2023 3:07 PM CDT 04/20/2023 5:28 PM CDT us Tera Meeks MD LAB MICROBIOLOGY - GEN ERAL ORDERABLES Final Result [facility] One [facility] [place] [address] from Last 3 Months or Most Recently Relevant to Health Maintenance Insurance HUMANA CHOICE MEDICARE PPO HUMANA CHOICE MEDICARE PPO Care Teams Breaker Hand Relationship Specialty Start Date End Date Lawson Cloud MD [address] [facility] 120 [place] [address] PCP - General Internal Medicine 07/20/22
[2025-05-01 12:52] LABS: Alanine Aminotransferase 22 U/L (6-35); Albumin Level 4.0 g/dL (3.5-5.1); Alkaline Phosphatase 62 U/L (38-126); Anion Gap 7 mmol/L (4-12); Aspartate Amino Transferase 31 U/L (14-36); Bilirubin,Total 0.2 mg/dL (0.2-1.3); Blood Urea Nitrogen 13 mg/dL (7-17); Calcium 9.2 mg/dL (8.4-10.2); Carbon Dioxide 30 mmol/L (22-30); Chloride 107 mmol/L (98-107); Estimated Glomerular Filt Rate 60; Glucose 92 mg/dL (65-110); Potassium 4.5 mmol/L (3.4-5.0); Sodium 144 mmol/L (137-145); Total Protein 6.8 g/dL (6.3-8.2)
== END 2025-05-01 11:07 | disposition home or self-care (01) ==
PROVIDERS: PCP Internal Medicine; Visit Provider Internal Medicine
DX: Z86.19 Personal history of other infectious and parasitic diseases (principal); I10 Essential (primary) hypertension
CPT/HCPCS: 36415; 80053

== ENCOUNTER 2025-05-22 13:21 | Emergency (ER) | payer MEDICARE, SELFPAY ==
--- NOTE | ~2025-05-22 | CT_ITS ---
EXAMINATION: CT abdomen pelvis wo con DATE: 05/22/2025 15:27 INDICATION: Left lower quadrant abdominal pain and constipation TECHNIQUE: Computed tomography (CT) of the abdomen and pelvis was performed without intravenous contr ast. Automated exposure control and iterative reconstruction technique were employed. The dose-length product was 475.78 mGy-cm. COMPARISON: CT abdomen and pelvis dated 05/17/[address] dated 10/24/2024 and 04/26/2023 FINDINGS: Likely benign 8 mm nodule at the posterior left lower lobe which is unchanged since 04/26/2023. Tiny c alcified nodules in the right lower lobe consistent with old granulomatous disease. No pleural effusi on. Heart size is normal. Unchanged small pericardial effusion. Liver, gallbladder, spleen, pancreas, bilateral adrenal glands and kidneys are normal. Small fat-containing supraumbilical ventral hernia. Tiny fat-containing umbilical hernia. There is mild diverticulosis along the descending and sigmoid colon. There is focal wall thickening and inflammatory stranding surrounding a diverticulum at the ju nction of the descending and sigmoid colon. No abscess or free intraperitoneal gas or fluid. Small rhoda wel and appendix are normal. Bladder is normal. The uterus is not identified and has likely been surg ically resected. No pathologically enlarged abdominal or pelvic lymphadenopathy. Moderate to severe l ower thoracic and mild to moderate lumbar spondylosis. IMPRESSION: 1. Radiographically uncomplicated diverticulitis at the junction of the descending and sigmoid colon. 2. Small fat-containing supraumbilical ventral hernia. 3. Likely benign 8 mm left lower lobe nodule which is unchanged since 04/26/2023. Recommend continuati on with previous recommendation for annual screening with low-dose noncontrast chest CT which could b e postponed until 12 months following the current study. Reviewed, dictated and finalized at location A. IMPRESSION: 1. Radiographically uncomplicated diverticulitis at the junction of the descend ing and sigmoid colon. 2. Small fat-containing supraumbilical ventral hernia. 3. Likely benign 8 mm left lower lobe nodule which is unchanged since 04/26/2023 . Recommend continuation with previous recommendation for annual screening with low-dose noncontrast chest CT which could be postponed until 12 months followi ng the current study.
--- OUTSIDE RECORDS SUMMARY | 2025-05-22 13:24 | XMS_ITS | Continuity of Care Document ---
Author Organization [facility] Address [address] [place] [address] Phone Care Team Providers Care Baseball Hand Sewer Name Role Phone Waters OD, Jose Unavailable Unavailable Advance Directives Directive Yes / No Effective Date File Name No Information Encounters Encounter Description Practice Location Reason(s) For Visit Diagnoses Date Provider Providers Copied on Encounter [facility], [address], [place], [place], [id number], [place] tel:[phone] [facility] No Information 4-200 2 Waters OD Jose. [address] , [address], [place], [address], [place]. tel:[phone] Family History Family Member Type Diagnosis Age [...]
--- OUTSIDE RECORDS SUMMARY | 2025-05-22 13:24 | XMS_ITS | Clinical Summary ---
Author Organization [address] Address [facility]4 [place] [address] Care Team Providers Care Informatics Consultant Name Role Phone Lawson Cloud MD Primary Care Provider +1- [phone] Allergies No known active allergies Medications Symbicort 80-4.5 mcg/actuation inhaler Inhale 2 puffs 2 (two) times a day 04/12/2023 Active lisinopriL (PRINIVIL,ZESTR IL) 10 mg tablet Take 1 tablet (10 mg total) by mouth daily 02/07/2023 Active venlafaxine XR (EFFEXOR-XR) 75 mg 24 hr capsule Take 1 capsule (75 mg total) by mouth daily 01/28/2023 Active qr-ditjtry-gjx- iron fm-FA-vitK 18 mg iron-600 mcg-80 mcg [...] () - previously following with Dr. Phan ([facility]). 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 Testing was performed by the DARSHAN 6800 HCV Test ([employer] Testing performed at [facility] Current Interpretive Data was last revised on 2021 HCV RNA IU/mL 7,240,000 IUnits/mL [facility] HCV RNA log IU/mL 6.86 log IUnits/mL [facility] Blood 04/20/2023 3:07 PM CDT 04/20/2023 5:28 PM CDT Tera Meeks MD LAB MICROBIOLOGY - GEN ERAL ORDERABLES Final Result [facility] One [facility] [place] [address] from Last 3 Months or Most Recently Relevant to Health Maintenance Insurance HUMANA CHOICE MEDICARE PPO HUMANA CHOICE MEDICARE PPO Care Teams Informatics Consultant Relationship Specialty Start Date End Date Lawson Cloud MD [address] [facility] 120 [place] [address] PCP - General Internal Medicine 07/20/22
[2025-05-22 13:36] VITALS: BP 117/84; PULSE 86; RESP 18; TEMP 36.8; O2SAT 98
--- NOTE | 2025-05-22 14:59 | ED_ITS ---
HPI - Abdominal Pain General Chief Complaint: Abdominal Pain Stated Complaint: constipation, bloating Time Seen by Provider: 05/22/25 14:42 History of Present Illness HPI narrative: This is a 74-year-old female with history of peripheral edema, hypertension who presents to the ED for abdominal pain and constipation. Patient states her last for bowel movement was about a week ago. She has only been having small karen since then. Denies nausea, vomiting, fevers, chills. She is not on any pain medications. Last colonoscopy was a couple years ago and was normal. She has been taking MiraLax daily. Has a history of total abdominal hysterectomy. Related Data Home Medications ?Medication ?Instructions ?Recorded ?Confirmed ?Last Taken ?Type aspirin 81 mg tablet,delayed 81 mg PO DAILY 11/24/19 05/07/25 Unknown History release (Shalonda Low Dose Aspirin) multivitamin (Daily Multi-Vitamin 1 tablet PO DAILY 06/16/21 05/07/25 Unknown History tablet) Allergies Allergy/AdvReac Type Severity Reaction Status Date / Time venom-wasp Allergy Severe Swelling Verified 05/22/25 13:23 Review of Systems 2 Review of Systems: Gen.: Denies fevers or chills Eyes: Denies eye pain or visual change ENT: Denies congestion Respiratory: Denies shortness of breath or cough CV: Denies chest pain or palpitations GI: Denies abdominal pain nausea, emesis or diarrhea denies burning, urgency, frequency or hematuria Musculoskeletal: Denies back pain or muscle pain Neuro: Denies numbness, tingling, weakness or focal weakness Skin: Denies rash Except as documented, all other systems reviewed and negative [facility] Past Medical History Medical History (Updated 05/22/25 @ 16:10 by Wilfredo Rodriguez MD) BMI 29.0-29.9,adult Headache Subcutaneous mass of back Screening for osteoporosis Other fatigue Fibrolipoma of skin Essential (primary) hypertension Chronic viral hepatitis C Cerebral aneurysm, nonruptured Anxiety disorder, unspecified Obesity (BMI 30-39.9) Hepatitis C Anxiety Mass on back Bronchitis HTN (hypertension) Wears dentures upper partial Seasonal allergies Wears glasses Cerebral aneurysm Surgical History Surgical History Hx of cerebral aneurysm repair H/O repair of right rotator cuff H/O: hysterectomy H/O breast biopsy left, benign H/O colonoscopy History of tonsillectomy H/O brain surgery S/P cerebral aneurysm coil Family History Family History (Updated 02/25/25 @ 10:32 by XENIA Cristobal) Mother Hypertension Cerebrovascular accident Family history of lupus erythematosus Sibling Hypertension Father Family history of diabetes mellitus in first degree relative Diabetes mellitus Social History Social History Smoking packs per day: 0.5 Smoking cigarettes per day: 10.0 Years smoked: 40 Smoking pack-years: 20.00 Smoking status: Former smoker Tobacco type: cigarettes Second hand tobacco smoke exposure: Yes Alcohol intake: current Drinks per week: 2 Alcohol use details: wine Substance use: current Substance use type: marijuana Other substance usage details: gummies Do You Feel Safe in your Home?: Yes Lack of Transportation: No Lack of Food: Never True Current Housing: I Have Housing Concerned About Future Housing: No Difficulty Paying Gas/Electric Bills: No Difficulty Paying for Meds: No Currently Unemployed: No Education: Associate Degree Difficulty w/ Childcare or Family Care: No Living arrangements: with family Occupation/Education: occupation Additional occupation/education comments: [employer] Gender identity (if verbalized by the patient): Female Spiritual care concerns: No Exam 2 Narrative: APPEARANCE: No acute distress, nontoxic, resting in bed EYES: EOMI HEENT: Normocephalic, atraumatic, OMM RESPIRATORY: No respiratory distress Clear to auscultation bilaterally with no rhonchi wheezing or rales. CARDIOVASCULAR: Regular rate and rhythm without murmurs rubs or gallops. ABDOMINAL: Soft, mild tenderness to palpation of the left lower quadrant, nondistended, no rebound or guarding MUSCULOSKELETAl: Moves all extremities. No clubbing, cyanosis or edema. NEURO: Awake and alert. Following commands, speech normal, no focal deficits SKIN:: Warm, dry. No rashes lesions or abrasions PSYCHIATRIC: Normal affect/mood, Course Course Emergency Course: CT abd/pelvis: IMPRESSION: 1. Radiographically uncomplicated diverticulitis at the junction of the descending and sigmoid colon. 2. Small fat-containing supraumbilical ventral hernia. 3. Likely benign 8 mm left lower lobe nodule which is unchanged since 04/26/2023. Recommend continuation with previous recommendation for annual screening with low-dose noncontrast chest CT which could be postponed until 12 months following the current study. Vital Signs Vital signs: Vital Signs Temperature 98.2 F 05/22/25 13:36 Pulse Rate 86 05/22/25 13:36 Respiratory Rate 18 05/22/25 13:36 Blood Pressure 117/84 05/22/25 13:36 Pulse Oximetry 98 05/22/25 13:36 Oxygen Delivery Room Air 05/22/25 13:36 Temperature 97.8 F 05/22/25 15:59 Pulse Rate 72 05/22/25 15:59 Respiratory Rate 16 05/22/25 15:59 Blood Pressure 153/94 H 05/22/25 15:59 Pulse Oximetry 100 05/22/25 15:59 Oxygen Delivery Room Air 05/22/25 13:36 MDM - Abdominal Pain MDM Narrative Medical decision making narrative: 74-year-old female that presented to the ED for left lower quadrant abdominal pain and concerns for constipation. Abdomen had mild tenderness palpation left lower quadrant. No evidence of acute abdomen at this time. Cbc CMP without significant abnormalities. CT abdomen/pelvis did reveal a acute uncomplicated diverticulitis. Patient will be started Cipro and Flagyl. She is given prescriptions for these. Advised follow-up with PCP next week for re- evaluation. Patient was agreeable to plan. Given strict return precautions. Differential Diagnosis Differential diagnosis: Likely constipation, diverticulitis, small bowel obstruction and other (electrolyte abnormality) Lab Data Attestation: I reviewed the patient's lab results. 05/22/25 15:22 05/22/25 15:22 Labs: Lab Results 05/22/25 Range/Units 15:22 WBC 7.5 (4.5-10.0) K/mm3 RBC 4.24 (4.2-5.4) M/mm3 Hgb 12.4 (12.0-15.0) g/dL Hct 38.7 (37.0-47.0) % MCV 91.3 (80-100) fl MCH 29.2 (26-34) pg MCHC 32.0 (32-36) g/dl RDW 13.8 (11.5-14.5) % Plt Count 196 (150-375) k/mm3 MPV 10.3 (7.4-10.4) fl Immature Gran % (Auto) 0.3 (0-0.5) % Neut % (Auto) 66.9 (45.5-73.1) % Lymph % (Auto) 20.8 (18.3-44.2) % Walker % (Auto) 7.5 (2.6-8.5) % Eos % (Auto) 3.7 (0-4.4) % Baso % (Auto) 0.8 (0.2-1.2) % Lymph # (Auto) 1.56 (0.9-3.2) K/mm3 Walker # (Auto) 0.6 (0.1-0.6) K/mm3 Eos # (Auto) 0.3 (0-0.3) K/mm3 Baso # (Auto) 0.1 (0.0-0.1) K/mm3 Abs Immat Gran (auto) 0.02 (0.00-0.031) K/mm3 Absolute Neuts (auto) 5.0 (1.3-6.7) K/mm3 Absolute Nucleated RBC 0.000 (0.0-0.012) K/mm3 Nucleated RBC % 0.0 (0.0-0.2) % Sodium 140 (137-145) mmol/L Potassium 4.2 (3.4-5.0) mmol/L Chloride 107 (98-107) mmol/L Carbon Dioxide 27 (22-30) mmol/L Anion Gap 6 (4-12) mmol/L BUN 14 (7-17) mg/dL Creatinine 0.92 (0.7-1.0) mg/dL Estim Creat Clear Calc 47 ml/min Estimated GFR 60 (59 - ) Glucose 91 (65-110) mg/dL Calcium 8.8 (8.4-10.2) mg/dL Total Bilirubin 0.5 (0.2-1.3) mg/dL AST 25 (14-36) U/L ALT 16 (6-35) U/L Alkaline Phosphatase 81 (38-126) U/L Total Protein 6.5 (6.3-8.2) g/dL Albumin 3.8 (3.5-5.1) g/dL Urine Color Yellow (Yellow) Urine Appearance Cloudy H (Clear) Urine pH 5.5 (5.0-9.0) Ur Specific Worley 1.026 (1.001-1.035) Urine Protein Trace (Negative) mg/dL Urine Glucose (UA) Negative (Negative) mg/dL Urine Ketones 1+ H (Negative) mg/dL Ur Blood (Man) Negative (Negative) Urine Nitrate Negative (Negative) Urine Bilirubin Negative (Negative) Urine Urobilinogen 1.0 (<2.0) mg/dL Leukocyte Esterase Rfl Negative (Negative) SANTOS/UL Urine RBC 0-2 (0-2) /hpf Urine WBC 0-5 (0-3) /hpf Ur Squamous Epith Cells None seen (Few) /hpf Urine Bacteria None seen /hpf Urine Casts 0-2 Imaging Data Radiologist's impression: ITS Impressions Abdomen/Pelvis CT 05/22/25 15:41 IMPRESSION: 1. Radiographically uncomplicated diverticulitis at the junction of the descending and sigmoid colon. 2. Small fat-containing supraumbilical ventral hernia. 3. Likely benign 8 mm left lower lobe nodule which is unchanged since 04/26/2023. Recommend continuation with previous recommendation for annual screening with low-dose noncontrast chest CT which could be postponed until 12 months following the current study. Discharge Plan Discharge Clinical Impression: Diverticulitis Patient Disposition: Home Condition: Stable Instructions: Antibiotic Form, Diverticulitis (ED), Diverticulitis Diet (ED) Patient Language: Slovenian Prescriptions: New ciprofloxacin HCl 500 mg tablet 500 mg PO Q12H 5 Days Qty: 9 0RF Rx Instructions: start taking 8/825 AM metronidazole 500 mg tablet 500 mg PO Q8H 5 Days Qty: 14 0RF Rx Instructions: Begin taking 825 AM No Action aspirin [Shalonda Low Dose Aspirin] 81 mg Tablet,Delayed Release (Dr/Ec) 81 mg PO DAILY multivitamin [Daily Multi-Vitamin] Tablet 1 tablet PO DAILY valsartan 320 mg tablet 320 mg PO DAILY Qty: 90 2RF furosemide [Lasix] 20 mg tablet 20 mg PO QAM PRN (Reason: edema) Qty: 30 2RF budesonide-formoterol [Symbicort] 80-4.5 mcg/actuation HFA aerosol inhaler 2 puff inhalation Q12H Qty: 10.2 5RF Rx Instructions: To replace Flovent; rinse and spit, use with spacer Follow-up/Referrals: Trey Valerio DO [Primary Care Provider] -
[2025-05-22 15:00] VITALS: BP 148/80; PULSE 74; RESP 16; TEMP 36.6; O2SAT 98
--- OUTSIDE RECORDS SUMMARY | 2025-05-22 15:06 | XMS_ITS | Clinical Summary ---
Author Organization [address] Address [facility] [place] [address] Care Team Providers Care Credentialing Manager Name Role Phone Lawson Cloud MD Primary Care Provider [phone] Allergies No known active allergies Medications Symbicort 80-4.5 mcg/actuation inhaler Inhale 2 puffs 2 (two) times a day 04/12/2023 Active lisinopriL (PRINIVIL,ZESTR IL) 10 mg tablet Take 1 tablet (10 mg total) by mouth daily 02/07/2023 Active venlafaxine XR (EFFEXOR-XR) 75 mg 24 hr capsule Take 1 capsule (75 mg total) by mouth daily 01/28/2023 Active ds-xdpaqye-szw- iron fm-FA-vitK 18 mg iron-600 mcg-80 mcg [...] () - previously following with Dr. Phan ([facility]). 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 Testing was performed by the [facility] 6800 HCV Test ([employer] Testing performed at [facility] Current Interpretive Data was last revised on 2021 HCV RNA IU/mL 7,240,000 IUnits/mL [facility] HCV RNA log IU/mL 6.86 log IUnits/mL [facility] Blood 04/20/2023 3:07 PM CDT 04/20/2023 5:28 PM CDT Tera Meeks MD LAB MICROBIOLOGY - GEN ERAL ORDERABLES Final Result [facility] Department [place] [address] from Last 3 Months or Most Recently Relevant to Health Maintenance Insurance HU[employer] CHOICE MEDICARE PPO HU[employer] CHOICE MEDICARE PPO Care Teams Credentialing Manager Relationship Specialty Start Date End Date Lawson Cloud MD [address] [facility] [address] [place] [address] PCP - General Internal Medicine 07/20/22
--- OUTSIDE RECORDS SUMMARY | 2025-05-22 15:06 | XMS_ITS | Continuity of Care Document ---
Author Organization [facility] Address [address] [place] [address] Phone Care Team Providers Care Manager Quality Improvement Name Role Phone Waters OD, Jose Unavailable Unavailable Advance Directives Directive Yes / No Effective Date File Name No Information Encounters Encounter Description Practice Location Reason(s) For Visit Diagnoses Date Provider Providers Copied on Encounter [facility], [address], [place], [place], [id number], [place] tel:[phone] [facility] No Information 4-200 2 Waters OD Jose. [address] , [address], [place], [address], [place]. tel:[phone] Family History Family Member Type Diagnosis Age At Onset No Information Payers Payer name Insurance type Covered democrat ID Authoriza tion(s) No Information Social History [...]
[2025-05-22 15:29] LABS: Hematocrit 38.7 % (37.0-47.0); Hemoglobin 12.4 g/dL (12.0-15.0); Immature Granulocyte Percent A 0.3 % (0-0.5); Lymphocytes Absolute Auto 1.56 K/mm3 (0.9-3.2); Mean Corpuscular HGB Conc 32.0 g/dl (32-36); Mean Corpuscular Hemoglobin 29.2 pg (26-34); Mean Corpuscular Volume 91.3 fl (80-100); Nucleated Red Blood Cells Absolute Auto 0.000 K/mm3 (0.0-0.012); Nucleated Red Blood Cells Perc 0.0 % (0.0-0.2); Platelet Count Result 196 k/mm3 (150-375); Red Blood Count 4.24 M/mm3 (4.2-5.4); White Blood Count 7.5 K/mm3 (4.5-10.0)
[2025-05-22 15:36] LABS: Add Urine Microscopic? YES; Appearance Urine Cloudy (Clear); Glucose Urine UA Negative (Negative); Leukocyte Esterase Ur Negative LEU/UL (Negative); Nitrate Urine Negative (Negative); Non Pathogenic Casts 0-2; Specific Grav Ur 1.026 (1.001-1.035)
[2025-05-22 15:48] LABS: Alanine Aminotransferase 16 U/L (6-35); Albumin Level 3.8 g/dL (3.5-5.1); Alkaline Phosphatase 81 U/L (38-126); Anion Gap 6 mmol/L (4-12); Aspartate Amino Transferase 25 U/L (14-36); Bilirubin,Total 0.5 mg/dL (0.2-1.3); Blood Urea Nitrogen 14 mg/dL (7-17); Calcium 8.8 mg/dL (8.4-10.2); Carbon Dioxide 27 mmol/L (22-30); Chloride 107 mmol/L (98-107); Estimated CRCL calculation 47 ml/min; Estimated Glomerular Filt Rate 60; Glucose 91 mg/dL (65-110); Potassium 4.2 mmol/L (3.4-5.0); Sodium 140 mmol/L (137-145); Total Protein 6.5 g/dL (6.3-8.2)
[2025-05-22 15:59] VITALS: BP 153/94; PULSE 72; RESP 16; TEMP 36.6; O2SAT 100
[2025-05-22] MEDS: CIPROFLOXACIN 500 MG TAB PO (16:30)
== END 2025-05-22 16:36 | disposition home or self-care (01) ==
PROVIDERS: Emergency Provider Student in an Organized Health Care Education/Training Program; PCP Internal Medicine
DX: K57.32 Diverticulitis of large intestine without perforation or abscess without bleeding (principal); I10 Essential (primary) hypertension; B18.2 Chronic viral hepatitis C; Z87.891 Personal history of nicotine dependence; Z90.710 Acquired absence of both cervix and uterus; R91.1 Solitary pulmonary nodule; K43.9 Ventral hernia without obstruction or gangrene; Z79.899 Other long term (current) drug therapy
CPT/HCPCS: 36415; 74176; 80053; 81001; 85025; 99284; A9270

== ENCOUNTER 2025-07-02 07:45 | Outpatient (CLI) | payer MEDICARE, SELFPAY ==
--- OUTSIDE RECORDS SUMMARY | 2002-05-07 19:00 | XMS_ITS | Continuity of Care Document ---
Author Organization [facility] Address [address] [place] [address] Phone Care Team Providers Care Credit Specialist Name Role Phone Waters OD, Jose Unavailable Unavailable Advance Directives Directive Yes / No Effective Date File Name No Information Encounters Encounter Description Practice Location Reason(s) For Visit Diagnoses Date Provider Providers Copied on Encounter [facility], [address], [place], [place], [id number], [place] tel:[phone] [facility], [place] No Information 4-200 2 Waters OD Jose. [address] , [address], [place], [address], [place]. tel:[phone] Family History Family Member Type Diagnosis Age At Onset No Information Payers Payer name Insurance type Covered republican ID Authoriza tion(s) No Information Social History Type Description Quantity Date Captured Comments Sex Female Smoking Status No Information Chief Complaint And Reason For Visit No Information Reason For Referral Reason For Referral No Information History Of Present Illness Encounter Date Complaint History Of Prese nt Illness No Information Functional Status Date Functional Assessmen t No Information Instructions Date Instruction Additional Infor mation No Information Assessments Type Assessment Date No Information Patient Care Teams Name Effective Dates (start - stop) Status Members No Information
--- NOTE | ~2025-07-02 | DEXA_ITS ---
Bone Density Report Name: FRAN VAZQUEZ Age: 74 Sex: Female Ethnicity: White Date of : 1950 Indication: postmenopausal osteoporosis; height loss; hysterectomy; Referring Provider: JOHNNY MILLS Study: Bone densitometry was performed. Exam Date: July 02, 2025 Accession number: [id number] Bone Density: Region BMD T-score Z-score Classification AP Spine(L1-L4) 0.732 -2.9 -0.6 Osteoporosis Femoral Neck (Left) 0.576 -2.5 -0.5 Osteoporosis Total Hip (Left) 0.658 -2.3 -0.7 Osteopenia Femoral Neck (Right) 0.551 -2.7 -0.7 Osteoporosis Total Hip (Right) 0.624 -2.6 -1.0 Osteoporosis Total Hip Mean 0.641 -2.5 -0.9 Osteopenia World Health Organization criteria for BMD impression classify patients as: Normal (T-score at or above -1.0), Osteopenia (T-score between -1.0 and -2.5), or Osteoporosis (T-score at or below -2.5). 10-year Fracture Risk: FRAX not reported because: Some T-score for Spine Total or Hip Total or Femoral Neck at or below -2.5 Previous Exams: Region Exam Age BMD T-score BMD Change BMD Change Date g/cm2 vs Baseline vs Previous AP Spine (L1-L4) 07/02/2025 74 0.732 -2.9 0.009 (1.3%) -0.013 (-1.7%) 09/13/2022 71 0.744 -2.8 0.022 (3.0%) 0.022 (3.0%) 06/12/2018 67 0.723 -2.9 Total Hip(Left) 07/02/2025 74 0.658 -2.3 -0.004 (-0.6%) 0.009 (1.4%) 09/13/2022 71 0.649 -2.4 -0.013 (-2.0%) -0.013 (-2.0%) 06/12/2018 67 0.662 -2.3 Total Hip(Right) 07/02/2025 74 0.624 -2.6 0.012 (1.9%) -0.012 (-1.9%) 09/13/2022 71 0.636 -2.5 0.024 (3.9%) 0.024 (3.9%) 06/12/2018 67 0.613 -2.7 *Denotes significance at 95% confidence level, LSC for AP Spine = 0.022 g/cm2, LSC for Total Hip = 0.027 g/cm2 Clinical Information Provided by Patient: Has used the following medications: Vitamin D, Calcium Has the following medical conditions: Hysterectomy Patient maximum height was 64 Menopause Age: 47 No regular weight bearing exercise Drinks caffeinated beverages Onset of menses at age 14 Number of children 2 Impression: The patient has osteoporosis, based on the Total Spine T-score. No significant bone loss was observed. Discussion: INCREASED RISK OF FRACTURE. BONE DENSITY IS UNDESIRABLY LOW AT ONE OR MORE SKELETAL SITES, CONSISTENT WITH POSTMENOPAUSAL OSTEOPOROSIS. This patient's lowest T-score meets the World Health Organization's (WHO) criteria for osteoporosis at one or more sites (T-score -2.5 or below). In untreated patients, the risk of osteoporotic fracture increases approximately two-fold for each 1.0 SD decrease in T-score. Low bone density is not the only risk factor for fracture; also consider factors such as patient's age, frailty or poor health, risk of falling, risk of injury, previous osteoporotic fracture, family history of osteoporosis, cigarette smoking, low body weight, etc. Not everyone with low bone mineral density has osteoporosis; osteomalacia and other metabolic bone disorders should also be considered. Patients who have osteoporosis should be evaluated for specific diseases and conditions (secondary causes) that may cause or contribute to bone loss. The [place] Association of Clinical Endocrinologists (AACE) and National Osteoporosis Foundation (NOF) recommend pharmacologic intervention for all postmenopausal women whose T-score is in this range. The patient should follow a healthful lifestyle (good nutrition with adequate calcium and vitamin D, and appropriate weight-bearing exercise). Follow-Up: Consider a repeat BMD and Vertebral Fracture Assessment (VFA) exam in 2 years or sooner if medically necessary, to reassess this patient's status. Reported by: GAIL on 07/02/2025 8:28:00 AM. Reviewed, dictated and finalized at location A.
--- OUTSIDE RECORDS SUMMARY | 2025-07-02 07:56 | XMS_ITS | Clinical Summary ---
Author Organization [address] Address [facility] [place] [address] Care Team Providers Care Mines Safety Engineer Name Role Phone Lawson Cloud MD Primary Care Provider [phone]- [phone] Allergies No known active allergies Medications Symbicort 80-4.5 mcg/actuation inhaler Inhale 2 puffs 2 (two) times a day 04/12/2023 Active lisinopriL (PRINIVIL,ZESTR IL) 10 mg tablet Take 1 tablet (10 mg total) by mouth daily 02/07/2023 Active venlafaxine XR (EFFEXOR-XR) 75 mg 24 hr capsule Take 1 capsule (75 mg total) by mouth daily 01/28/2023 Active ur-etkiaoo-dca- iron fm-FA-vitK 18 mg iron-600 mcg-80 mcg [...] () - previously following with Dr. Phan ([facility]). 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 Testing was performed by the [facility] 6800 HCV Test ([employer] Testing performed at [facility] Current Interpretive Data was last revised on 2021 HCV RNA IU/mL 7,240,000 IUnits/mL [facility] HCV RNA log IU/mL 6.86 log IUnits/mL [facility] Blood 04/20/2023 3:07 PM CDT 04/20/2023 5:28 PM CDT Tera Meeks MD LAB MICROBIOLOGY - GEN ERAL ORDERABLES Final Result [facility] Department [place] [address] from Last 3 Months or Most Recently Relevant to Health Maintenance Insurance HUMANA CHOICE MEDICARE PPO HUMANA CHOICE MEDICARE PPO Care Teams Mines Safety Engineer Relationship Specialty Start Date End Date Lawson Cloud MD [address] [facility] [address] [place] [address] PCP - General Internal Medicine 07/20/22
== END 2025-07-02 07:46 | disposition home or self-care (01) ==
LOC: ANHFOHIMG 07:46
PROVIDERS: PCP Internal Medicine; Visit Provider Nurse Practitioner
DX: M81.0 Age-related osteoporosis without current pathological fracture (principal); M85.89 Other specified disorders of bone density and structure, multiple sites
CPT/HCPCS: 77080